=== PATIENT | female | born 1955 | race Caucasian/White ===

== ENCOUNTER → 2018-03-20 | Outpatient (CLI) | payer BC ==
[2018-03-20 10:18] LABS: BLOOD UREA NITROGEN 11 mg/dl (7-18); GLUCOSE 91 mg/dl (70-99); SODIUM 137 mmol/L (136-145)
[2018-03-20 10:19] LABS: ALBUMIN 3.7 gm/dl (3.4-5.0); ALKALINE PHOSPHATASE 94 U/L (45-117); ALT/SGPT 23 U/L (12-78); AST/SGOT 18 U/L (15-37); CALCIUM 8.6 mg/dl (8.5-10.1); CARBON DIOXIDE 27 mmol/L (21-32); POTASSIUM 4.5 mmol/L (3.5-5.1); TOTAL PROTEIN 6.5 gm/dl (6.4-8.2)
== END | disposition home or self-care (01) ==
LOC: C.LAB 09:19
PROVIDERS: ATTEND Internal Medicine
DX: D69.6 Thrombocytopenia, unspecified (principal)

== ENCOUNTER 2022-05-14 19:09 | Inpatient (IN) ==
[2022-05-14] MEDS ORDERED: SODIUM CHLORIDE 0.9% 1000ML 1,000 ML IV ONE (19:40)
--- NOTE | 2022-05-14 20:06 | Emergency Department Note ---
Impression & Plan Acute alteration in mental status, Hypercalcemia, Splenomegaly, Pancytopenia ED Provider Note NAME: LAVONNE BARRERA AGE: 67 SEX: F : 1955 ARRIVES VIA: Walk-In INFORMANT: Patient, ED PROVIDER(S): Naif Alonzo DO CHIEF COMPLAINT: Weakness HPI: The patient is a 67-year-old female who presented to the emergency departm ent for an evaluation of weakness. The patient was told to come the emergency department by her doctor. She had laboratory studies done today. The patient states she has been having trouble concentrating. She is been having trouble ambulating. She has a very large and protruding abdomen and she states they are doing testing to determine what is wrong with her abdomen. She denies having any chest pain. She denies having any difficulty breathing. The patient denies having any fever or chills. She denies having any nausea or vomiting. The patient has not any changes to her medications. ROS: See above HPI for pertinent positives & negatives. A total of 10 systems reviewed and were otherwise negative. PAST MEDICAL HISTORY: See Below PAST SURGICAL HISTORY: See Below FAMILY HISTORY: See Below SOCIAL HISTORY: See Below HOME MEDICATIONS: See Below ALLERGIES: See Below VITALS: See Below PHYSICAL EXAMINATION: GENERAL: The patient is awake but somewhat frail-appearing. EYES: The conjunctivae are clear. The pupils are round and reactive. EARS, NOSE, MOUTH AND THROAT: The nose is without any evidence of any deformity. Mucous membranes are dry. NECK: The neck is nontender and supple. RESPIRATORY: Normal respiratory effort is noted there is no evidence of wheezing rhonchi or rales CARDIOVASCULAR: Tachycardic rate with regular rhythm was noted. There is no definite murmur. GASTROINTESTINAL: The abdomen is protruding. There is no tenderness guarding r igidity. MUSCULOSKELETAL/EXTREMITIES: There is no evidence of gross deformity full range of motion is noted in the hips and shoulders. SKIN: Skin is cool and dry. There is no significant pedal edema. NEUROLOGIC: Patient is awake and answering questions slowly. She is oriented to person place and situation. Strength was symmetric but diminished. MEDICAL DECISION MAKING: The patient is a 67-year-old female who presented to the emergency department after having laboratory studies drawn that showed an elevated calcium. The patient was treated with IV fluids in the emergency department. She was also confused and I am unsure the patient's baseline. For this reason further laboratory and radiographic studies were obtained including CT of the head. No definite abnormality was noted with CT of the head. The patient's abdominal exam did show a very distended abdomen. This appears to be consistent with splenomegaly that was noted on CT abdomen and pelvis tonight. The [facility] hospitalist group was notified about the patient. Triage Nursing notes reviewed. Prior medical records reviewed Vital Signs: reviewed and remarkable for hypertension and tachycardia and tachypnea. Differential diagnosis: Infection, dehydration, metabolic abnormality, hypo/hyperglycemia, electrolyte disturbance, anemia, hypoxia, cardiac sources, intracerebral event, toxicologic, neurologic, as well as other pathologies. ER treatment provided: See below Diagnostics interpreted by me: ECG: EKG was obtained in the emergency department. My interpretation is sinus tachycardia 107 bpm. There were no PVCs noted. There were no acute ST segment abnormalities noted. Nonspecific T wave abnormalities were appreciated. No previous tracing was available. QTc was 379 ms. Cardiac Monitoring: An order was placed for continuous cardiac monitoring. The monitor shows a rate of 107 bpm with sinus tachycardia. Laboratory studies: As stated above and show below. Imaging studies: See below Consultation(s): Dr. Man was notified about the patient. Past Med/Surg History Medical History Headache Sinusitis Stye external Thrombocytopenia Social History Smoking Status: Never smoker Preferred Language: Citizen Of [place] Feels Safe at Home: Yes Results & Data (ED) Vital Signs Vital Signs - 24 hr 05/14/22 19:13 05/14/22 21:30 05/14/22 21:30 Temperature 37.4 C Temperature Source Temporal Artery Scan Pulse Rate 105 H 107 H Pulse Rate from SpO2 Sensor 98 H Respiratory Rate 18 26 H Respiratory Effort / Characteristics Non-Labored Spontaneous Respiratory Depth Normal Blood Pressure 127/70 141/77 H Blood Pressure Mean 89 98 Blood Pressure Position Sitting Pulse Oximetry 96 94 Oxygen Delivery Method Room Air Sepsis Recent Fever Within 48 Hours No Sepsis New/Unexplained Change in Mental Status No Sepsis Action Taken by Nursing No Action Required Home Medications Current Medication List: was personally reviewed by me Laboratory Data Attestation: I reviewed the patient's lab results. Result diagrams: 05/14/22 20:22 05/14/22 20:22 Lab Results 05/14/22 05/14/22 05/14/22 Range/Units 20:22 20:22 21:30 WBC 3.66 L (4.8-10.8) K/ul Hgb 8.9 L (12.0-16.0) g/dl Hct 28.9 L (34.1-44.9) % Plt Count 71 L (130-400) K/uL MPV 12.4 H (9.4-12.3) fL Sodium 136 (136-145) mmol/L Potassium 3.9 (3.5-5.1) mmol/L Chloride 102 (98-107) mmol/L Carbon Dioxide 28 (21-32) mmol/L Anion Gap 6 (3-11) BUN 29 H (6-23) mg/dl Creatinine 0.83 (0.6-1.2) mg/dl Est Cr Clr Drug Dosing Not Reportable Est GFR ( Amer) 84.6 ml/min Est GFR (Non-Af Amer) 73.0 ml/min BUN/Creatinine Ratio 34.9 H (10-20) Glucose 113 H (70-99(Fasting)) mg/dl Calcium 13.9 H* (8.5-10.1) mg/dl Magnesium 1.8 (1.7-2.4) mg/dl Total Bilirubin 3.8 H (0.2-1.0) mg/dl AST 31 (13-39) U/L ALT 7 (7-52) U/L Alkaline Phosphatase 71 (34-104) U/L Total Protein 5.2 L (6.0-8.3) gm/dl Albumin 3.8 (3.4-5.0) gm/dl Globulin 1.4 L (2.5-4.0) gm/dl Albumin/Globulin Ratio 2.7 H (0.9-2) SARS-CoV-2, RNA, NAAT NEGATIVE (NEGATIVE) Administered Medications Discontinued Medications Sodium Chloride (Nss 1000ml) 1,000 mls @ 999 mls/hr IV .Q1H1M ONE Stop: 05/14/22 20:40 Last Admin: 05/14/22 20:56 Dose: 999 mls/hr Documented By: [id number] Imaging Data Radiologist's Impression: Chest X-Ray 05/14/22 19:40 XR chest 1V portable CLINICAL HISTORY: weakness TECHNIQUE: Single frontal radiograph of the chest was obtained. Comparison: None available at the time of this dictation. FINDINGS: No lines and tubes are seen. The cardiomediastinal silhouette is normal. The lungs are clear. No evidence of pleural effusion or pneumothorax. IMPRESSION: No acute chest disease. ACT 112: Negative or not required by law. Electronically signed by: Cornel Dubose M.D. 05/14/2022 8:35 PM Abdomen/Pelvis CT 05/14/22 21:[address] WITHOUT CONTRAST HISTORY: Acutely altered mental status with distended abdomen distended abd TECHNIQUE: Multiaxial CT images of the abdomen and pelvis were performed without contrast. A dose lowering technique was utilized adhering to the principles of ALARA. COMPARISON STUDY: None. FINDINGS: Mild cardiomegaly. Slightly decreased attenuation of the cardiac blood pool may represent anemia. Coronary artery calcifications. Mildly prominent internal mammary chain lymph nodes are partially imaged. Trace right and small left pleural effusions. Mild subsegmental bibasilar atelectasis. No pneumatosis or pneumoperitoneum. The study is limited without the use of contrast. Markedly enlarged spleen displaces the adjacent loops of bowel. The spleen measures up to approximately 30 cm in length. Pathologically enlarged lymph nodes of the abdomen and pelvis with the largest lymph nodes within the periaortic distribution. A left periaortic lymph node on image 248 measures 3.5 x 2.1 cm. Additional pathologically enlarged pelvic sidewall lymph nodes measure up to 1.4 cm. Inguinal chain lymph nodes measure up to approximately 1.2 cm. Additional pathologic periportal and gastrohepatic lymph nodes. The pancreas, and adrenal glands are not well visualized. Partially distended gallbladder. The liver is unremarkable. Unremarkable kidneys. Hydronephrosis. Unremarkable urinary bladder and uterus. Surgical clips of the bilateral adnexal distributions. Atherosclerosis of the aorta. Mild nonspecific wall thickening of the distal esophagus. No bowel obstruction or bowel wall thickening. Trace ascites. Colonic diverticulosis. Hyperdense material within the noninflamed appendix may represent appendicolith versus retained enteric contrast. Mild generalized body wall edema. No acute fracture or destructive bone lesion identified. IMPRESSION: 1. Limited exam as above. No bowel obstruction or bowel wall thickening. 2. Marked splenomegaly with pathologic lymphadenopathy of the abdomen and pelv is. Findings are compatible with a lymphoproliferative disorder. Oncologic workup is needed. 3. Trace right and small left pleural effusions with trace abdominal pelvic ascites. ACT 112: Negative or not required by law. The above report was generated using voice recognition software. It may contain grammatical, syntax or spelling errors. Electronically signed by: Marvin James M.D. 05/14/2022 10:[address] 05/14/22 21:00 CT head/brain wo con CLINICAL HISTORY: 67 years-old Female with ams. Acutely altered mental status TECHNIQUE: Multiple axial CT images of the head were obtained without contrast. A dose lowering technique was utilized adhering to the principles of ALARA. CT DOSE: 859.05 mGy.cm COMPARISON: None. FINDINGS: No acute intracranial hemorrhage, midline shift, intracranial mass, hydro cephalus, territorial ischemia or abnormal extra-axial collection. Mild involutional changes. The calvarium is intact. The paranasal sinuses, mastoid air cells, and middle e ar cavities are clear. IMPRESSION: No acute intracranial abnormality. ACT 112: Negative or not required by law. The above report was generated using voice recognition software. It may contain grammatical, syntax or spelling errors. Electronically signed by: Marvin James M.D. 05/14/2022 9:39 PM Discharge Plan Visit Data Chief Complaint: Referred by Doctor Stated Complaint: REF BY DOC, GOING TO BE ADMITTED ED Provider: Naif Alonzo Discharge Problem: Acute alteration in mental status, Hypercalcemia, Splenomegaly, Pancytopenia Patient Disposition: Being Evaluated by Hospitalist Forms Stand Alone Forms: [facility] Referrals Referrals: PCP,NO [Primary Care Provider] -
--- NOTE | 2022-05-14 20:37 | XRay Report ---
XR chest 1V portable CLINICAL HISTORY: weakness TECHNIQUE: Single frontal radiograph of the chest was obtained. Comparison: None available at the time of this dictation. FINDINGS: No lines and tubes are seen. The cardiomediastinal silhouette is normal. The lungs are clear. No evid ence of pleural effusion or pneumothorax. IMPRESSION: No acute chest disease. ACT 112: Negative or not required by law. Electronically signed by: Cornel Dubose M.D. 05/14/2022 8:35 PM
[2022-05-14 20:45] LABS: Hematocrit (blood only) 28.9 % (34.1-44.9); Hemoglobin 8.9 g/dl (12.0-16.0); Mean Platelet Volume 12.4 fL (9.4-12.3); Platelet Count 71 K/uL (130-400); White Blood Count 3.66 K/ul (4.8-10.8)
[2022-05-14 21:07] LABS: Alanine Aminotransferase 7 U/L (7-52); Albumin Globulin Ratio 2.7 (0.9-2); Albumin Level 3.8 gm/dl (3.4-5.0); Alkaline Phosphatase 71 U/L (34-104); Anion Gap 6 (3-11); Aspartate Aminotransferase 31 U/L (13-39); BUN Creatinine Ratio 34.9 (10-20); Bilirubin,Total 3.8 mg/dl (0.2-1.0); Blood Urea Nitrogen 29 mg/dl (6-23); Calcium 13.9 mg/dl (8.5-10.1); Carbon Dioxide 28 mmol/L (21-32); Chloride 102 mmol/L (98-107); Est GFR (African American) 84.6 ml/min; Globulin 1.4 gm/dl (2.5-4.0); Glucose 113 mg/dl (70-99(Fasting)); Magnesium 1.8 mg/dl (1.7-2.4); Potassium 3.9 mmol/L (3.5-5.1); Sodium 136 mmol/L (136-145); Total Protein 5.2 gm/dl (6.0-8.3)
--- NOTE | 2022-05-14 21:40 | CT Scan Report ---
CT head/brain wo con CLINICAL HISTORY: 67 years-old Female with ams. Acutely altered mental status TECHNIQUE: Multiple axial CT images of the head were obtained without contrast. A dose lowering tech nique was utilized adhering to the principles of ALARA. CT DOSE: 859.05 mGy.cm COMPARISON: None. FINDINGS: No acute intracranial hemorrhage, midline shift, intracranial mass, hydrocephalus, territorial ischem ia or abnormal extra-axial collection. Mild involutional changes. The calvarium is intact. The paranasal sinuses, mastoid air cells, and middle ear cavities are clear . IMPRESSION: No acute intracranial abnormality. ACT 112: Negative or not required by law. The above report was generated using voice recognition software. It may contain grammatical, syntax o r spelling errors. Electronically signed by: Marvin James M.D. 05/14/2022 9:39 PM
--- NOTE | 2022-05-14 22:12 | CT Scan Report ---
ABDOMEN AND PELVIS CT WITHOUT CONTRAST HISTORY: Acutely altered mental status with distended abdomen distended abd TECHNIQUE: Multiaxial CT images of the abdomen and pelvis were performed without contrast. A dose lo wering technique was utilized adhering to the principles of ALARA. COMPARISON STUDY: None. FINDINGS: Mild cardiomegaly. Slightly decreased attenuation of the cardiac blood pool may represent a nemia. Coronary artery calcifications. Mildly prominent internal mammary chain lymph nodes are partia lly imaged. Trace right and small left pleural effusions. Mild subsegmental bibasilar atelectasis. No pneumatosis or pneumoperitoneum. The study is limited without the use of contrast. Markedly enlarged spleen displaces the adjacent loops of bowel. The spleen measures up to approximate ly 30 cm in length. Pathologically enlarged lymph nodes of the abdomen and pelvis with the largest ly mph nodes within the periaortic distribution. A left periaortic lymph node on image 248 measures 3.5 x 2.1 cm. Additional pathologically enlarged pelvic sidewall lymph nodes measure up to 1.4 cm. Inguin al chain lymph nodes measure up to approximately 1.2 cm. Additional pathologic periportal and gastroh epatic lymph nodes. The pancreas, and adrenal glands are not well visualized. Partially distended gal lbladder. The liver is unremarkable. Unremarkable kidneys. Hydronephrosis. Unremarkable urinary bladder and uterus. Surgical clips of the bilateral adnexal distributions. Atherosclerosis of the aorta. Mild nonspecific wall thickening of the distal esophagus. No bowel obstruction or bowel wall thickeni ng. Trace ascites. Colonic diverticulosis. Hyperdense material within the noninflamed appendix may re present appendicolith versus retained enteric contrast. Mild generalized body wall edema. No acute fr acture or destructive bone lesion identified. IMPRESSION: 1. Limited exam as above. No bowel obstruction or bowel wall thickening. 2. Marked splenomegaly with pathologic lymphadenopathy of the abdomen and pelvis. Findings are compat ible with a lymphoproliferative disorder. Oncologic workup is needed. 3. Trace right and small left pleural effusions with trace abdominal pelvic ascites. ACT 112: Negative or not required by law. The above report was generated using voice recognition software. It may contain grammatical, syntax o r spelling errors. Electronically signed by: Marvin James M.D. 05/14/2022 10:10 PM
[2022-05-14 22:17] LABS: ALC (manual) 1.43 K/uL (1.2-3.4); ANC (manual) 2.16 K/uL (1.4-6.5); Basophils # (manual) 0.07 K/uL (0-0.2); Basophils % (manual) 2 %; Eosinophils # (manual) 0.04 K/uL (0-0.50); Eosinophils % (manual) 1 %; Lymphocytes # (manual) 0.99 K/uL (1.2-3.4); Lymphocytes % (manual) 27 %; Mean Corpuscular Hemoglobin 34.8 pg (25.0-34.0); Mean Corpuscular Hgb Conc 30.8 g/dL (32.0-36.0); Mean Corpuscular Volume 112.9 fL (80.0-100.0); Neutrophils # (manual) 2.16 K/uL (1.4-6.5); Neutrophils % (manual) 59 %; Ovalocytes 1+; Polychromasia 2+; RDW Coefficient of Variation 16.7 % (11.5-14.5); RDW Standard Deviation 67.6 fL (36.4-46.3); Red Blood Count 2.56 M/uL (3.93-5.22); Tear Drop Cells 3+
[2022-05-14] MEDS ORDERED: POLYETHYLENE (MIRALAX) 17 GM PACK PO PRN (22:43)
[2022-05-14] MEDS ORDERED: ACETAMINOPHEN 325 MG TAB PO PRN (22:43)
[2022-05-14] MEDS ORDERED: Patient's ALLERGY Info needs ENTERED SCH (23:00)
--- NOTE | 2022-05-14 23:06 | History & Physical Report ---
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 Hypercalcemia -Ca 14.5 on admit -given 1L NSS in [facility], started on 2L NSS -given 60mg Pamidronate -recheck BMP am Splenomegaly -CT A/P: Limited exam as above. No bowel obstruction or bowel wall thickening. Marked splenomegaly with pathologic lymphadenopathy of the abdomen and pelvis. Findings are compatible with a lymphoproliferative disorder. Oncologic workup is needed. Trace right and small left pleural effusions with trace abdominal pelvic ascites. -oncology consulted Moss Syndrome -notable splenomegaly and pathologically enlarged lymph nodes of cervical , abd, pelvic. 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 Patient states she follows with Dr. Frost for oncology, states she has an autoimmune condition that she doesn't understand and is trying to treat with homeopathy. She states her abdomen has become much more swollen over the past 6 months and she has been experiencing abd pain below her belly. Patient describes unintentional weight loss ongoing for the past 2 years. States her legs are swollen, she has difficulty walking due to pain and weakness, denies any falls. States she always feels dizzy and can't focus, her vision has become blurrier over the last 6 months, last week she felt chills. She denies change in hearing, SOB or nausea. Patient states she was previously a patient of Dr. Diggs, her spleen was also enlarged back then but no to this degree, he had advised her to remove it at that time but she refused. Patient has never had a biopsy of her lymph nodes. She has never had prior surgeries. She was recently started on lasix, otherwise uses homeopathic medicine. Family history dad had lung cancer. She is aware she has anemia, may or may not have Grave's disease. She denies smoking, rare alcohol. Per our records patient was a patient of Dr. 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 She has recently connected with Dr. Frost in 12/24/21 and again today, was recommended excisional lymph node biopsy and PET/CT scan, patient had so far declined any forms of treatment. Allergies Allergy/AdvReac Type Severity Reaction Status Date / Time Sulfa (Sulfonamide Allergy Rash Verified 05/14/22 23:36 Antibiotics) Home Medications Medication Instructions Recorded Confirmed Type furosemide 20 mg tablet 20 mg DAILY 05/14/22 05/14/22 History Past Med/Surg History Medical History Headache Sinusitis Stye external Thrombocytopenia Social History Smoking Status: Never smoker Second Hand Exposure: No; Do You Dip or Chew Tobacco: No; Tobacco Cessation Education Requested by Patient: No Hx Alcohol Use: Yes Alcohol type: wine Hx Substance Use: No Preferred Language: Wolof Communication Ability: Effective Classification And Treatment Director Required: No Beliefs That Will Affect Care: None Current Living Situation: Spouse Other Information That Helps Us Care for You: No Feels Safe at Home: Yes Safety Concerns: Feels Safe At This Time Assistive Devices: Glasses Review of Systems Review of Systems: see hpi Physical Exam Constitutional: + thin, cooperative and comfortable Eyes: PERRL, conjunctivae normal, anicteric sclerae ENMT: enleraged anterior and posterior cervical lymph nodes b/l Neck: trachea midline Respiratory: normal respiratory effort, lungs clear to auscultation Cardiovascular: Rate/Rhythm: + tachycardic Vessels: + bounding carotid pulses Extremities: + edema (+2 pitting b/l LE up to knee) Chest (Breasts): Chest: normal inspection of chest Gastrointestinal (Abdomen): Inspection/Auscultation: + abdomen distended Percussion/Palpation: + abdomen tender (b/l lower quadrant), + splenomegaly and + abdomen firm Skin: no rashes, warm and dry Neurologic: CN's II-XI intact bilaterally Results & Data Results & Data ([facility]) Vital Signs (Past 12 Hours) Vital Signs Temp Pulse Resp BP Pulse Ox O2 Del Method 05/14/22 22:30 103 H 38 H 96 05/14/22 22:30 141/81 H 05/14/22 22:20 97 H 26 H 95 05/14/22 22:10 94 H 28 H 94 05/14/22 22:00 103 H 28 H 95 05/14/22 22:00 132/83 05/14/22 21:50 92 H 28 H 95 05/14/22 21:40 102 H 28 H 96 05/14/22 21:30 107 H 26 H 94 05/14/22 21:30 141/77 H 05/14/22 19:13 37.4 C 105 H 18 127/70 96 Room Air Diagnostic Findings Laboratory Results WBC 3.66 K/ul (4.8-10.8) L 05/14/22 20: RBC 2.56 M/uL (3.93-5.22) L 05/14/22 20:22 Hgb 8.9 g/dl (12.0-16.0) L 05/14/22 20: Hct 28.9 % (34.1-44.9) L 05/14/22 20:22 MCV 112.9 fL (80.0-100.0) H 05/14/22 20:22 MCH 34.8 pg (25.0-34.0) H 05/14/22 20: MCHC 30.8 g/dL (32.0-36.0) L 05/14/22 20:22 RDW Std Deviation 67.6 fL (36.4-46.3) H 05/14/22 20:22 RDW Coeff of Desire 16.7 % (11.5-14.5) H 05/14/22 20:22 Plt Count 71 K/uL (130-400) L 05/14/22 20:22 MPV 12.4 fL (9.4-12.3) H 05/14/22 20:22 Neutrophils % (Manual) 59 % 05/14/22 20:22 Lymphocytes % (Manual) 27 % 05/14/22 20:22 Reactive Lymphs % (Man) 12 % 05/14/22 20:22 Eosinophils % (Manual) 1 % 05/14/22 20:22 Basophils % (Manual) 2 % 05/14/22 20:22 Neutrophils # (Manual) 2.16 K/uL (1.4-6.5) 05/14/22 20:22 Total Absolute Neuts 2.16 K/uL (1.4-6.5) 05/14/22 20:22 Lymphocytes # (Manual) 0.99 K/uL (1.2-3.4) L 05/14/22 20:22 Reactive Lymphs # 0.44 K/uL 05/14/22 20:22 Total Abs Lymphocytes 1.43 K/uL (1.2-3.4) 05/14/22 20:22 Eosinophils # (Manual) 0.04 K/uL (0-0.50) 05/14/22 20:22 Basophils # (Manual) 0.07 K/uL (0-0.2) 05/14/22 20:22 Polychromasia 2+ 05/14/22 20:22 Tear Drop Cells 3+ 05/14/22 20:22 Ovalocytes 1+ 05/14/22 20:22 Sodium 136 mmol/L (136-145) 05/14/22 20:22 Potassium 3.9 mmol/L (3.5-5.1) 05/14/22 20:22 Chloride 102 mmol/L (98-107) 05/14/22 20:22 Carbon Dioxide 28 mmol/L (21-32) 05/14/22 20:22 Anion Gap 6 (3-11) 05/14/22 20:22 BUN 29 mg/dl (6-23) H 05/14/22 20:22 Creatinine 0.83 mg/dl (0.6-1.2) 05/14/22 20:22 Est Cr Clr Drug Dosing Not Reportable 05/14/22 20:22 Est GFR ( Amer) 84.6 ml/min 05/14/22 20:22 Est GFR (Non-Af Amer) 73.0 ml/min 05/14/22 20:22 BUN/Creatinine Ratio 34.9 (10-20) H 05/14/22 20:22 Glucose 113 mg/dl (70-99(Fasting)) H 05/14/22 20:22 Calcium 13.9 mg/dl (8.5-10.1) H* 05/14/22 20:22 Magnesium 1.8 mg/dl (1.7-2.4) 05/14/22 20:22 Total Bilirubin 3.8 mg/dl (0.2-1.0) H 05/14/22 20:22 AST 31 U/L (13-39) 05/14/22 20:22 ALT 7 U/L (7-52) 05/14/22 20:22 Alkaline Phosphatase 71 U/L (34-104) 05/14/22 20:22 Total Protein 5.2 gm/dl (6.0-8.3) L 05/14/22 20:22 Albumin 3.8 gm/dl (3.4-5.0) 05/14/22 20:22 Globulin 1.4 gm/dl (2.5-4.0) L 05/14/22 20:22 Albumin/Globulin Ratio 2.7 (0.9-2) H 05/14/22 20:22 SARS-CoV-2, RNA, NAAT NEGATIVE (NEGATIVE) 05/14/22 21:30 Impressions Chest X-Ray 05/14/22 19:40 XR chest 1V portable CLINICAL HISTORY: weakness TECHNIQUE: Single frontal radiograph of the chest was obtained. Comparison: None available at the time of this dictation. FINDINGS: No lines and tubes are seen. The cardiomediastinal silhouette is normal. The lungs are clear. No evidence of pleural effusion or pneumothorax. IMPRESSION: No acute chest disease. ACT 112: Negative or not required by law. Electronically signed by: Cornel Dubose M.D. 05/14/2022 8:35 PM Abdomen/Pelvis CT 05/14/22 21:[address] WITHOUT CONTRAST HISTORY: Acutely altered mental status with distended abdomen distended abd TECHNIQUE: Multiaxial CT images of the abdomen and pelvis were performed without contrast. A dose lowering technique was utilized adhering to the principles of ALARA. COMPARISON STUDY: None. FINDINGS: Mild cardiomegaly. Slightly decreased attenuation of the cardiac blood pool may represent anemia. Coronary artery calcifications. Mildly prominent internal mammary chain lymph nodes are partially imaged. Trace right and small left pleural effusions. Mild subsegmental bibasilar atelectasis. No pneumatosis or pneumoperitoneum. The study is limited without the use of contrast. Markedly enlarged spleen displaces the adjacent loops of bowel. The spleen measures up to approximately 30 cm in length. Pathologically enlarged lymph nodes of the abdomen and pelvis with the largest lymph nodes within the periaortic distribution. A left periaortic lymph node on image 248 measures 3.5 x 2.1 cm. Additional pathologically enlarged pelvic sidewall lymph nodes measure up to 1.4 cm. Inguinal chain lymph nodes measure up to approximately 1.2 cm. Additional pathologic periportal and gastrohepatic lymph nodes. The pancreas, and adrenal glands are not well visualized. Partially distended gallbladder. The liver is unremarkable. Unremarkable kidneys. Hydronephrosis. Unremarkable urinary bladder and uterus. Surgical clips of the bilateral adnexal distributions. Atherosclerosis of the aorta. Mild nonspecific wall thickening of the distal esophagus. No bowel obstruction or bowel wall thickening. Trace ascites. Colonic diverticulosis. Hyperdense material within the noninflamed appendix may represent appendicolith versus retained enteric contrast. Mild generalized body wall edema. No acute fracture or destructive bone lesion identified. IMPRESSION: 1. Limited exam as above. No bowel obstruction or bowel wall thickening. 2. Marked splenomegaly with pathologic lymphadenopathy of the abdomen and pelvis. Findings are compatible with a lymphoproliferative disorder. Oncologic workup is needed. 3. Trace right and small left pleural effusions with trace abdominal pelvic ascites. ACT 112: Negative or not required by law. The above report was generated using voice recognition software. It may contain grammatical, syntax or spelling errors. Electronically signed by: Marvin James M.D. 05/14/2022 10:[address] 05/14/22 21:00 CT head/brain wo con CLINICAL HISTORY: 67 years-old Female with ams. Acutely altered mental status TECHNIQUE: Multiple axial CT images of the head were obtained without contrast. A dose lowering technique was utilized adhering to the principles of ALARA. CT DOSE: 859.05 mGy.cm COMPARISON: None. FINDINGS: No acute intracranial hemorrhage, midline shift, intracranial mass, hydrocephalus, territorial ischemia or abnormal extra-axial collection. Mild involutional changes. The calvarium is intact. The paranasal sinuses, mastoid air cells, and middle ear cavities are clear. IMPRESSION: No acute intracranial abnormality. ACT 112: Negative or not required by law. The above report was generated using voice recognition software. It may contain grammatical, syntax or spelling errors. Electronically signed by: Marvin James M.D. 05/14/2022 9:39 PM Medications Administered Current Inpatient Medications Acetaminophen (Acetaminophen 325 Mg Tab) 650 mg PO Q4H PRN PRN Reason: pain/fever Stop: 06/13/22 22:42 Heparin Sodium (Porcine) (Heparin Sod 5,000 Unit/0.5 Ml Vial) 5,000 units SQ Q12 JESSICA Stop: 06/14/22 08:59 Pamidronate Disodium 60 mg/ (Sodium Chloride) 1,020 mls @ 0 mls/hr IV .Q0M ONE Stop: 05/14/22 22:52 Miscellaneous Information (Patient's Allergy Info Needs Entered) 1 each N/A Q30M JESSICA Stop: 05/15/22 03:00 Polyethylene Glycol (Polyethylene (Miralax) 17 Gm Pack) 17 gm PO DAILY PRN PRN Reason: Constipation Stop: 06/13/22 22:42 Supervising Physician Co-Signing Physician Notes Attending addendum: I have physically seen this patient, have supervised the medical residents activities, and agree with the H&P unless as otherwise noted. Assessment and Plan: Hypercalcemia- 14.5 as an outpatient, 13.9 on admission labs Given 1 L normal saline from the ED Placed on additional 2 L normal saline now Pamidronate 60 mg IV x1 Follow serial laboratories Likely secondary to intra-abdominal process Splenomegaly/marked lymphadenopathy/Moss syndrome- Likely lymphoproliferative disorder Consult hematology oncology Remaining orders and notations as noted Resident Activity Tracking Resident Involvement: Resident Care Provided Care Provided: Adult Hospital Medicine
[2022-05-15] MEDS ORDERED: PAMIDRONATE DISODIUM 60 MG in SODIUM CHLORIDE 0.9% 1000ML 1,000 ML IV ONE (00:15)
[2022-05-15 00:58] LABS: Bilirubin Direct 0.9 mg/dl (0-0.2); Phosphorus 2.5 mg/dl (2.5-4.9)
[2022-05-15 01:33] LABS: Base Excess ABG 2.9 mEq/L (-9-1.8); HCO3 ABG 26 mmol/L (19-24); Oxygen Saturation ABG 97.1 % (90-95); PCO2 ABG 34 mmHg (35-46); PO2 ABG 74 mmHg (80-95); pH ABG 7.49 (7.35-7.45)
[2022-05-15 01:59] LABS: Albumin Globulin Ratio 3.1 (0.9-2); Albumin Level 3.1 gm/dl (3.4-5.0); BUN Creatinine Ratio 29.4 (10-20); Bilirubin,Total 2.7 mg/dl (0.2-1.0); Calcium 12.6 mg/dl (8.5-10.1); Creatinine Clr Calc Pharmacy 56.6 ml/min; Est GFR (African American) 82.2 ml/min; Est GFR (Non-African American) 70.9 ml/min; Potassium 3.8 mmol/L (3.5-5.1); Total Protein 4.1 gm/dl (6.0-8.3)
[2022-05-15 02:02] LABS: Hematocrit (blood only) 20.9 % (34.1-44.9); Hemoglobin 6.4 g/dl (12.0-16.0); Mean Corpuscular Hemoglobin 34.8 pg (25.0-34.0); Mean Corpuscular Hgb Conc 30.6 g/dL (32.0-36.0); Mean Corpuscular Volume 113.6 fL (80.0-100.0); Mean Platelet Volume 11.7 fL (9.4-12.3); Nucleated RBC # (auto) 0.03 K/uL (0-0); Platelet Count 57 K/uL (130-400); RDW Coefficient of Variation 16.3 % (11.5-14.5); RDW Standard Deviation 66.8 fL (36.4-46.3); Red Blood Count 1.84 M/uL (3.93-5.22); White Blood Count 3.02 K/ul (4.8-10.8)
[2022-05-15] MEDS: SODIUM CHLORIDE 0.9% 1000ML 1,000 ML IV SCH ×2 (02:10→09:06)
[2022-05-15 02:25] LABS: Allen Test Pos (Pos)
[2022-05-15] MEDS ORDERED: SODIUM CHLORIDE 0.9% 250 ML IV PRN (02:27)
--- NOTE | 2022-05-15 03:15 | Communication Note ---
Date of Service: May 15, 2022 changed level of care from med/surg to med tele for sinus tach 100s and tachypnea to 28-31 added labs. discontinued heparin sq order ordered type and cross 2u irradiated prbc (transfuse 1u). informed by lab that will need to acquire from [facility] because LANDON pos during outpatient testing. There will be delay, likely will not obtain until end of day today. will continue to follow cbc. some component of the anemia is dilutional as Hb went from 8.9->6.4 within hours. next cbc at 9AM. H/H ordered for 3PM and 9PM.
[2022-05-15] MEDS ORDERED: SODIUM CHLORIDE 0.9% 1000ML 1,000 ML IV SCH (03:55)
[2022-05-15] MEDS ORDERED: MAGNESIUM SULFATE / D5W 1 GM/100 ML BAG IV ONE (04:41)
--- NOTE | 2022-05-15 05:42 | Ultrasound Report ---
ULTRASOUND BILATERAL LOWER EXTREMITY VENOUS CLINICAL HISTORY: Lower extremity edema. COMPARISON STUDY: No priors. TECHNIQUE: Real-time, grayscale, and color Doppler sonography of the deep veins of the right and left lower extremity was performed from the inguinal crease to the calf. Compression and augmentation wer e utilized. FINDINGS: There is no sonographic evidence of deep venous thrombosis identified in the right or left lower extremity. The common femoral, superficial femoral, and popliteal veins are patent and normally compressible bilaterally. The greater saphenous vein and the profunda femoris vein at the junction w ith the common femoral vein are clear in both legs. The visualized calf veins are patent bilaterally. Prominent inguinal lymph nodes are nonspecific and likely reactive. IMPRESSION: There is no sonographic evidence of deep venous thrombosis identified in the right or lef t lower extremity. ACT 112: Negative or not required by law. Electronically signed by: Bert Rios M.D. 05/15/2022 5:40 AM
[2022-05-15 07:08] LABS: Appearance Urine Clear (Clear); Bilirubin Urine Negative (Negative); Blood Urine Negative (Negative); Color Urine Dark Yellow; Glucose Urine UA Negative (Negative); Ketones Urine Negative (Negative); Leukocyte Esterase Urine Negative (Negative); Nitrite Urine Negative (Negative); Protein Urine Negative (Negative); Specific Gravity Urine 1.014 (1.000-1.030); Urobilinogen Urine Negative (Negative); pH Urine 5.5 (4.5-7.5)
--- NOTE | 2022-05-15 07:18 | Electrocardiogram Report ---
Test Reason : Blood Pressure : / mmHG Vent. Rate : 107 BPM Atrial Rate : 107 BPM P-R Int : 162 ms QRS Dur : 084 ms QT Int : 284 ms P-R-T Axes : 061 007 -02 degrees QTc Int : 379 ms Sinus tachycardia with Premature supraventricular complexes Nonspecific T wave abnormality Abnormal ECG No previous ECGs available Confirmed by Jermain Chong ([id number]) on 05/15/2022 7:17:34 AM Referred By: REFERRED SELF Confirmed By:Ulises Chong
[2022-05-15 08:53] LABS: Other Cell Type % 12 %
[2022-05-15 08:54] LABS: Other Cells # (manual) 0.44 K/uL (0-0)
[2022-05-15] MEDS ORDERED: methylPREDNISolone 125 MG in SYRINGE 0 ML IV ONE (09:00)
[2022-05-15] MEDS ORDERED: HEPARIN SOD 5,000 UNIT/0.5 ML VIAL SQ SCH (09:00)
[2022-05-15] MEDS: predniSONE 50 MG TAB PO SCH (09:45)
[2022-05-15 09:49] LABS: Albumin Globulin Ratio 2.8 (0.9-2); Albumin Level 3.1 gm/dl (3.4-5.0); BUN Creatinine Ratio 32.1 (10-20); Bilirubin,Total 2.4 mg/dl (0.2-1.0); Creatinine Clr Calc Pharmacy 57.7 ml/min; Est GFR (African American) 91.2 ml/min; Est GFR (Non-African American) 78.7 ml/min; Globulin 1.1 gm/dl (2.5-4.0); Potassium 3.6 mmol/L (3.5-5.1); Total Protein 4.2 gm/dl (6.0-8.3)
[2022-05-15 09:57] LABS: ALC (manual) 1.82 K/uL (1.2-3.4); Basophilic Stippling 1+; Basophils # (manual) 0.07 K/uL (0-0.2); Basophils % (manual) 2 %; Lymphocytes # (manual) 1.82 K/uL (1.2-3.4); Lymphocytes % (manual) 50 %; Mean Corpuscular Hemoglobin 34.9 pg (25.0-34.0); Mean Corpuscular Hgb Conc 30.5 g/dL (32.0-36.0); Mean Corpuscular Volume 114.6 fL (80.0-100.0); Mean Platelet Volume 11.9 fL (9.4-12.3); Monocytes # (manual) 0.07 K/uL (0.24-0.82); Monocytes % (manual) 2 %; Neutrophils % (manual) 33 %; Nucleated RBC # (auto) 0.02 K/uL (0-0); Nucleated RBC % (auto) 0.5 %; Other Cell Type % 14 %; Other Cells # (manual) 0.51 K/uL (0-0); Platelet Count 58 K/uL (130-400); Platelet Estimate Decreased (Normal); Polychromasia 1+; RDW Coefficient of Variation 16.7 % (11.5-14.5); RDW Standard Deviation 69.8 fL (36.4-46.3); Red Blood Count 1.92 M/uL (3.93-5.22); White Blood Count 3.64 K/ul (4.8-10.8)
[2022-05-15 10:00] LABS: Hemoglobin 6.7 g/dl (12.0-16.0)
--- NOTE | 2022-05-15 14:26 | Hospitalist Progress Note ---
Date of Service May 15, 2022 Assessment & Plan (1) Moss syndrome: Plan: Patient diagnosed with Moss syndrome, used to follow up with Oncologist Dr Caterina Diggs treated her with IVIG, corticosteroids, Rituximab, Promacta, he offered her splenectomy in 2016, but she refused and was subsequently lost to follow up. Apparently, she started seeing Dr Frost 01/03 and excisional lymph node biopsy and PET/CT was recommended, but she declined and opted for homeopathic medicine. She presents to the hospital on account of weakness and hypercalcemia on the insistence of her Oncologist She was found to be pancytopenic. 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 Physical Exam Physical Exam: The patient is awake, alert and oriented 3, well developed and well nourished, normocephalic and atraumatic, lying in bed and in no acute distress. HEENT--PERRL, EOMI,pale mucous membranes and oropharynx mildly dry Neck--supple. No JVD. No bruits. Thyroid normal, trachea midline, no adenopathy. Heart--normal S1 and S2. No murmurs, rubs or gallops. Lungs--clear bilaterally, no respiratory distress, no accessory muscle use. Abdomen--distended, massive splenomegaly Extremities--trace leg edema Dermatologic--normal skin turgor, normal color, no abnormal lymph nodes, no rash. Neurologic--cranial nerves II through XII grossly intact. Rheumatologic--normal range of motion. Psychiatric--normal affect. Results & Data Results & Data ([facility]) Vital Signs (Past 12 Hours) Vital Signs Temp Pulse Pulse Resp BP Pulse Ox O2 Del Method 05/15/22 12:24 98.2 F 78 16 103/55 L 93 Room Air 05/15/22 07:49 97.5 F L 81 18 115/51 L 93 Room Air 05/15/22 07:35 86 05/15/22 05:10 88 05/15/22 04:39 Room Air 05/15/22 04:39 98.2 F 88 20 128/88 93 Room Air 05/15/22 03:11 98.2 F 88 18 128/68 93 Room Air PG Care Time/CCT Total # of Minutes Spent Total Time Spent with Patient: Total time spent is greater than 50% in coordination of care (as documented) at patient's floor/unit and/or counseling patient: Coding Level of Care Code 79345 Subseq Hosp Care Lvl 2 Diagnoses Moss syndrome D69.41 Hypercalcemia E83.52 Splenomegaly R16.1 Pancytopenia D61.818 Time Spent (min) 35
[2022-05-15 16:02] LABS: Hematocrit (blood only) 28.2 % (34.1-44.9); Hemoglobin 8.6 g/dl (12.0-16.0)
--- NOTE | 2022-05-15 19:19 | Billing Data ---
Date of Service May 15, 2022 Coding Level of Care Code 67919 Initial Inpt Care Lvl 3
[2022-05-15 22:02] LABS: Hematocrit (blood only) 28.6 % (34.1-44.9); Hemoglobin 8.9 g/dl (12.0-16.0)
[2022-05-16 07:11] LABS: Hematocrit (blood only) 24.3 % (34.1-44.9); Hemoglobin 7.3 g/dl (12.0-16.0); Mean Corpuscular Hemoglobin 34.6 pg (25.0-34.0); Mean Corpuscular Volume 115.2 fL (80.0-100.0); Mean Platelet Volume 11.8 fL (9.4-12.3); Nucleated RBC # (auto) 0.02 K/uL (0-0); Nucleated RBC % (auto) 0.5 %; Platelet Count 58 K/uL (130-400); Platelet Estimate Decreased (Normal); RDW Coefficient of Variation 16.4 % (11.5-14.5); RDW Standard Deviation 68.8 fL (36.4-46.3); Red Blood Count 2.11 M/uL (3.93-5.22); White Blood Count 4.37 K/ul (4.8-10.8)
[2022-05-16 07:14] LABS: BUN Creatinine Ratio 35.2 (10-20); Calcium 9.6 mg/dl (8.5-10.1); Creatinine Clr Calc Pharmacy 52.8 ml/min; Est GFR (African American) 78.8 ml/min; Potassium 3.2 mmol/L (3.5-5.1)
[2022-05-16] MEDS: predniSONE 50 MG TAB PO SCH (07:29)
--- NOTE | 2022-05-16 14:27 | Hospitalist Progress Note ---
Date of Service May 16, 2022 Assessment & Plan (1) Moss syndrome: Plan: Patient diagnosed with Moss syndrome, used to follow up with Oncologist Dr Caterina Diggs treated her with IVIG, corticosteroids, Rituximab, Promacta, he offered her splenectomy in 2016, but she refused and was subsequently lost to follow up. Apparently, she started seeing Dr Frost 01/03 and excisional lymph node biopsy and PET/CT was recommended, but she declined and opted for homeopathic medicine. She presents to the hospital on account of weakness and hypercalcemia on the insistence of her Oncologist She was found to be pancytopenic. 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 Physical Exam Physical Exam: The patient is awake, alert and oriented 3, well developed and well nourished, normocephalic and atraumatic, lying in bed and in no acute distress. HEENT--PERRL, EOMI,pale mucous membranes and oropharynx mildly dry Neck--supple. No JVD. No bruits. Thyroid normal, trachea midline, no adenopathy. Heart--normal S1 and S2. No murmurs, rubs or gallops. Lungs--clear bilaterally, no respiratory distress, no accessory muscle use. Abdomen--distended, massive splenomegaly Extremities--trace leg edema Dermatologic--normal skin turgor, normal color, no abnormal lymph nodes, no rash. Neurologic--cranial nerves II through XII grossly intact. Rheumatologic--normal range of motion. Psychiatric--normal affect. Results & Data Results & Data ([facility]) Vital Signs (Past 12 Hours) Vital Signs Temp Pulse Pulse Resp BP BP Pulse Ox 05/16/22 13:15 97.7 F 74 16 139/64 96 05/16/22 12:15 97.5 F L 77 16 131/70 92 05/16/22 11:45 97.5 F L 65 16 127/65 93 05/16/22 11:30 97.5 F L 80 16 123/65 93 05/16/22 11:09 97.7 F 80 16 141/66 H 93 05/16/22 07:32 97.5 F L 64 16 111/61 97 05/16/22 07:23 56 L 05/16/22 04:42 72 05/16/22 03:06 97.3 F L 58 L 16 101/50 L 96 O2 Del Method O2 Flow Rate 05/16/22 13:15 05/16/22 12:15 05/16/22 11:45 05/16/22 11:30 0 05/16/22 11:09 0 05/16/22 07:32 Room Air 05/16/22 07:23 05/16/22 04:42 05/16/22 03:06 Room Air PG Care Time/CCT Total # of Minutes Spent Total Time Spent with Patient: Total time spent is greater than 50% in coordination of care (as documented) at patient's floor/unit and/or counseling patient: Coding Level of Care Code 83009 Subseq Hosp Care Lvl 2 Diagnoses Moss syndrome D69.41 Hypercalcemia E83.52 Splenomegaly R16.1 Pancytopenia D61.818 Time Spent (min) 35
[2022-05-16 17:08] LABS: Hemoglobin 9.4 g/dl (12.0-16.0)
--- NOTE | 2022-05-17 06:58 | Hospitalist Progress Note ---
Date of Service May 17, 2022 Assessment & Plan (1) Hypercalcemia: Plan: Presented at the request of Dr. Fung to the emergency room due to a calcium of 13.4. Received IV fluids and pamidronate on admission. Calcium today of 9.0 following these interventions. Daily BMP. Hypercalcemia likely due to underlying hematologic malignancy. Evaluation of such as described below. 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 Patient discontinued treatments in 2019 in favor of a holistic approach. Patient was reevaluated by Dr. Frost in December 2021 and at that time was noted to have massive splenomegaly and extensive cervical lymphadenopathy. Last week patient decided to pursue evaluation of her ongoing medical issues, including bone marrow biopsy, PET scan, excisional biopsy. Given significant concern for high-grade lymphoma, general surgery was consulted this admission for excisional lymph node biopsy while patient is in-house. Dr. Sanchez with general surgery to perform cervical lymph node biopsy tomorrow morning. N.p.o. at midnight for this. (3) Autoimmune hemolytic anemia: Plan: See above (4) Pancytopenia: Plan: Chronic. History of macrocytic anemia, follows with Dr. Frost as described above. Presented with WBC 4.34, hemoglobin 8.9, platelets 70. Hemoglobin decreased to 6.4 on 05/15 without evidence of bleeding; is now s/p 1 unit of packed red blood cells. Hemoglobin stable at 8.4. No evidence of bleeding from any source. Daily CBC. (5) Splenomegaly: Plan: See above. (6) Lymphadenopathy: Plan: See above. Plan CODE STATUS: Full code FEN: N.p.o. at midnight for lymph node biopsy DVT prophylaxis: Ambulate on demand for now with resumption of chemoprophylaxis following biopsy Dispo: Med/Surg with Tele Admission and Anticipated Discharge Date Admission Date: May 14, 2022 Subjective Patient without acute events overnight. Today patient reports that she would like to undergo evaluation of suspected hematologic malignancy and speak with general surgery about excisional biopsy. She denies chest pain, shortness of breath, abdominal pain. She does report some early satiety due to her massive splenomegaly. She denies blood in her stool or urine. Review of Systems Constitutional: no fever and no chills Respiratory: no cough and no dyspnea Cardiovascular: no chest pain and no palpitations Gastrointestinal: no abdominal pain, no nausea and no vomiting Physical Exam Constitutional: WD/WN, vitals as above Respiratory: normal respiratory effort, lungs clear to auscultation Cardiovascular: RRR, no murmur, no edema Gastrointestinal (Abdomen): Abdomen firm and distended, this is chronic for several months per patient. No fluid wave. Splenomegaly noted. Bowel sounds normal. Musculoskeletal: Patient seen walking to and from bathroom without weakness or issues. Strength 5/5 in bilateral upper and lower extremities. Skin: no rashes, warm and dry Psychiatric: A+Ox3, euthymic affect Results & Data Results & Data ([facility]) Vital Signs (Past 12 Hours) Vital Signs Temp Pulse Pulse Resp BP Pulse Ox O2 Del Method 05/17/22 03:14 36.7 C 68 16 122/71 94 Room Air 05/17/22 00:22 62 05/16/22 23:17 36.7 C 66 18 127/42 L 93 Room Air 05/16/22 19:36 36.4 C L 71 18 129/70 96 Room Air PG Care Time/CCT Total # of Minutes Spent Total Time Spent with Patient: Total time spent is greater than 50% in coordination of care (as documented) at patient's floor/unit and/or counseling patient: Coding Level of Care Code 92718 Subseq Hosp Care Lvl 3 Diagnoses Hypercalcemia E83.52 Moss syndrome D69.41 Autoimmune hemolytic anemia D59.10 Pancytopenia D61.818 Splenomegaly R16.1 Lymphadenopathy R59.1
[2022-05-17 07:39] LABS: Albumin Globulin Ratio 3.1 (0.9-2); Albumin Level 3.1 gm/dl (3.4-5.0); BUN Creatinine Ratio 40.5 (10-20); Bilirubin Direct 0.6 mg/dl (0-0.2); Bilirubin,Total 2.2 mg/dl (0.2-1.0); Creatinine Clr Calc Pharmacy 63.1 ml/min; Est GFR (African American) 97.2 ml/min; Est GFR (Non-African American) 83.8 ml/min; Potassium 3.4 mmol/L (3.5-5.1); Total Protein 4.1 gm/dl (6.0-8.3)
[2022-05-17 08:00] LABS: Hematocrit (blood only) 27.3 % (34.1-44.9); Hemoglobin 8.4 g/dl (12.0-16.0); Platelet Count 61 K/uL (130-400); White Blood Count 4.98 K/ul (4.8-10.8)
[2022-05-17] MEDS: predniSONE 50 MG TAB PO SCH (08:01)
[2022-05-17 08:46] LABS: ALC (manual) 2.24 K/uL (1.2-3.4); ANC (manual) 1.79 K/uL (1.4-6.5); Basophils % (manual) 2 %; Eosinophils # (manual) 0.05 K/uL (0-0.50); Eosinophils % (manual) 1 %; Lymphocytes # (manual) 2.24 K/uL (1.2-3.4); Lymphocytes % (manual) 45 %; Mean Corpuscular Hemoglobin 34.4 pg (25.0-34.0); Mean Corpuscular Hgb Conc 30.8 g/dL (32.0-36.0); Mean Corpuscular Volume 111.9 fL (80.0-100.0); Monocytes % (manual) 2 %; Myelocytes # (manual) 0.05 K/uL (0-0); Myelocytes % (manual) 1 %; Neutrophils # (manual) 1.79 K/uL (1.4-6.5); Neutrophils % (manual) 36 %; Nucleated RBC # (auto) 0.02 K/uL (0-0); Nucleated RBC % (auto) 0.4 %; Other Cell Type % 14 %; Ovalocytes 1+; Polychromasia 2+; RDW Coefficient of Variation 17.5 % (11.5-14.5); RDW Standard Deviation 71.6 fL (36.4-46.3); Red Blood Count 2.44 M/uL (3.93-5.22); Tear Drop Cells 3+
--- NOTE | 2022-05-17 10:12 | Surgery Consultation ---
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 She has not had much in way of recent workup of her splenomegaly, lymphadenopathy and lab abnormalities as she opted to try a homeopathic approach to her care. She has recently been connected with Dr. Frost this year and recent blood work noted hypercalcemia and she was referred to be evaluated/treated. A CT a/p in the ER revealed marked splenomegaly with pathologic lymphadenopathy of the abdomen and pelvis. Findings are compatible with a lymphoproliferative disorder. Our services have been consulted to consider a lymph node biopsy for diagnostic purposes. She has palpable LN's along the cervical, occipital, and clavicular regions. She is amenable to biopsy at this time. We can add her on to the OR schedule tomorrow for cervical LN biopsy. NPO at midnight. Dr. Sanchez has obtained consent. (2) Moss syndrome: Supervising Physician Co-Signing Physician Notes I personally saw and evaluate the patient with Mayda Sweeney PA-C and agree with the assessment and plan. 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 Patient was previously a patient of Dr. Nielsen a few years ago, but since was lost to follow up as she chose to be treated by a homeopathic doctor in [place]. She reports she has recently connected with Dr. Frost this year. On scheduled lab work she was found to be hypercalcemic and referred to the ER. She underwent a CT a/p that revealed marked splenomegaly with pathologic lymphadenopathy of the abdomen and pelvis. Findings are compatible with a lymphoproliferative disorder. Our services have been consulted to consider a lymph node biopsy for diagnostic purposes. Apparently this was recommended in the past and recently by Dr. Frost, but pt refused. She said she is open to more treatments now seeing that the homeopathic medicine did not help her. She reports ongoing weakness, fatigue, and difficulty walking. She has abdominal distention and pain along her spleen. She denies any fevers/chills, nausea/vomiting, difficulty with eating. Reports a ~5lb weight loss. She says she feels better since her blood transfusion earlier this admission. Allergies Allergy/AdvReac Type Severity Reaction Status Date / Time Sulfa (Sulfonamide Allergy Rash Verified 05/14/22 23:36 Antibiotics) Home Medications Medication Instructions Recorded Confirmed Type furosemide 20 mg tablet 20 mg DAILY 05/14/22 05/14/22 History Patient History Medical History Headache Sinusitis Stye external Thrombocytopenia Social History Smoking Status: Never smoker Second Hand Exposure: No; Hx Alcohol Use: Yes Alcohol type: wine Hx Substance Use: No Preferred Language: Rw[place]an Communication Ability: Effective Agent Required: No Beliefs That Will Affect Care: None Current Living Situation: Spouse Feels Safe at Home: Yes Assistive Devices: Glasses Review of Systems Constitutional: + weakness and + weight loss; no fever, no chills and no anorexia Respiratory: no dyspnea Cardiovascular: no chest pain Gastrointestinal: + bloating; no nausea, no vomiting and no change in bowel habits Physical Exam Physical Exam: awake/alert, no distress ENMT: Palpable LN's posteriorly in hair line, + R cervical LN, and R infraclavicular LN Respiratory: normal respiratory effort Gastrointestinal (Abdomen): Inspection/Auscultation: + abdomen distended Percussion/Palpation: + abdomen tender (mild generalized abdominal discomfort) and + splenomegaly Results & Data ([facility]) Vital Signs (Past 12 Hours) Vital Signs Temp Pulse Pulse Resp BP BP Pulse Ox 05/17/22 08:01 36.6 C 65 16 125/70 95 05/17/22 07:48 96 H 05/17/22 03:14 36.7 C 68 16 122/71 94 05/17/22 00:22 62 05/16/22 23:17 36.7 C 66 18 127/42 L 93 O2 Del Method 05/17/22 08:01 Room Air 05/17/22 07:48 05/17/22 03:14 Room Air 05/17/22 00:22 05/16/22 23:17 Room Air Diagnostic Findings ABDOMEN AND PELVIS CT WITHOUT CONTRAST HISTORY: Acutely altered mental status with distended abdomen distended abd TECHNIQUE: Multiaxial CT images of the abdomen and pelvis were performed without contrast. A dose lowering technique was utilized adhering to the principles of ALARA. COMPARISON STUDY: None. FINDINGS: Mild cardiomegaly. Slightly decreased attenuation of the cardiac blood pool may represent anemia. Coronary artery calcifications. Mildly prominent internal mammary chain lymph nodes are partially imaged. Trace right and small left pleural effusions. Mild subsegmental bibasilar atelectasis. No pneumatosis or pneumoperitoneum. The study is limited without the use of contrast. Markedly enlarged spleen displaces the adjacent loops of bowel. The spleen measures up to approximately 30 cm in length. Pathologically enlarged lymph nodes of the abdomen and pelvis with the largest lymph nodes within the periaortic distribution. A left periaortic lymph node on image 248 measures 3.5 x 2.1 cm. Additional pathologically enlarged pelvic sidewall lymph nodes measure up to 1.4 cm. Inguinal chain lymph nodes measure up to approximately 1.2 cm. Additional pathologic periportal and gastrohepatic lymph nodes. The pancreas, and adrenal glands are not well visualized. Partially distended gallbladder. The liver is unremarkable. Unremarkable kidneys. Hydronephrosis. Unremarkable urinary bladder and uterus. Surgical clips of the bilateral adnexal distributions. Atherosclerosis of the aorta. Mild nonspecific wall thickening of the distal esophagus. No bowel obstruction or bowel wall thickening. Trace ascites. Colonic diverticulosis. Hyperdense material within the noninflamed appendix may represent appendicolith versus retained enteric contrast. Mild generalized body wall edema. No acute fracture or destructive bone lesion identified. IMPRESSION: 1. Limited exam as above. No bowel obstruction or bowel wall thickening. 2. Marked splenomegaly with pathologic lymphadenopathy of the abdomen and pelvis. Findings are compatible with a lymphoproliferative disorder. Oncologic workup is needed. 3. Trace right and small left pleural effusions with trace abdominal pelvic ascites. ACT 112: Negative or not required by law. The above report was generated using voice recognition software. It may contain grammatical, syntax or spelling errors. Electronically signed by: Marvin James M.D. 05/14/2022 10:10 PM PG Care Time/CCT Total # of Minutes Spent Total Time Spent with Patient: Total time spent is greater than 50% in coordination of care (as documented) at patient's floor/unit and/or counseling patient: Coding Level of Care Code 48836 Initial Inpt Care Lvl 1 Diagnoses Splenomegaly R16.1 Moss syndrome D69.41
--- NOTE | 2022-05-17 11:36 | Consultation ---
Date of Consultation May 17, 2022 Assessment & Plan (1) Pancytopenia: (2) Splenomegaly: (3) Lymphadenopathy: Plan Ivy 67-year-old female who presented with hypercalcemia likely from malignancy. She had previously refused investigations including lymph node biopsy, PET/CT and bone marrow biopsy. She is now willing to undergo these tests to assess for hematologic malignancy such as lymphoma. Given elevated LDH and generalized lymphadenopathy with splenomegaly highly concerned that she has high-grade lymphoma. Recommend general surgery consult to see if excisional lymph node biopsy is possible while she is in the hospital. We will arrange for PET/CT and bone marrow biopsy as an outpatient. History of Present Illness Reason for Consultation: Hypercalcemia Attending Physician: Jeniffer Almodovar, History of Present Illness Ivy 67-year-old female who is a longstanding patient at [facility] previously been followed by Dr. Diggs for Castillo syndrome for which she received multiple treatments including IVIG, corticosteroids, rituximab, Promacta and Nplate. She discontinued treatment around 2019 and decided to pursue more holistic approach. She however continued intermittent follow-up at [facility] and I initially evaluated her in Dec, 2021. At that time, examination had revealed extensive cervical lymphadenopathy for which I recommended obtaining restaging imaging including PET/CT, excisional lymph node biopsy as well as bone marrow biopsy. Patient however declined my recommendations opting for continued observation. Recently her CBC had revealed abnormal lymphocytes which was concerning for possible aggressive hematologic malignancy for which [employer] FISH panel for CLL as well as high-grade lymphoma was obtained which was negative. She called our office last week complaining of worsening abdominal distention for which we recommended labs. Labs obtained at that time had revealed hypercalcemia with calcium level of 13.4. She received IV Zometa 4 mg x 1 dose on 05/13/2022. Repeat labs on 05/14/2022 revealed worsening hypercalcemia with calcium level of 14.5 for which I recommended she present to the ER. She subsequently received pamidronate with normalization of calcium level. CT A/P obtained during admission revealed significant splenomegaly as well as abdominal lymphadenopathy. During my evaluation of patient today, she complains of significant abdominal distention and lower extremity swelling. She is now willing to undergo work-up for lymphoma including excisional lymph node biopsy, PET/CT and bone marrow biopsy. Allergies Allergy/AdvReac Type Severity Reaction Status Date / Time Sulfa (Sulfonamide Allergy Rash Verified 09/30/22 23:36 Antibiotics) Home Medications Medication Instructions Recorded Confirmed Type furosemide 20 mg tablet 20 mg DAILY 05/14/22 05/14/22 History Patient History Medical History Headache Sinusitis Stye external Thrombocytopenia Social History Smoking Status: Never smoker Second Hand Exposure: No; Hx Alcohol Use: Yes Alcohol type: wine Hx Substance Use: No Preferred Language: Greek Communication Ability: Effective Property Maintenance Supervisor Required: No Beliefs That Will Affect Care: None Current Living Situation: Spouse Feels Safe at Home: Yes Assistive Devices: None Review of Systems Review of Systems: All systems reviewed & are unremarkable except as noted in HPI & below Physical Exam Constitutional: + ill appearing and + thin Eyes: + scleral abnormality (Icterus) Respiratory: normal respiratory effort, lungs clear to auscultation Cardiovascular: RRR, no murmur, no edema Extremities: + pedal edema Gastrointestinal (Abdomen): Inspection/Auscultation: + abdomen distended Percussion/Palpation: + splenomegaly Lymphatic: + cervical lymphadenopathy Results & Data ([facility]) Vital Signs (Past 12 Hours) Vital Signs Temp Pulse Pulse Resp BP BP Pulse Ox 05/17/22 11:21 36.8 C 73 16 138/72 93 05/17/22 08:01 36.6 C 65 16 125/70 95 05/17/22 07:48 96 H 05/17/22 03:14 36.7 C 68 16 122/71 94 05/17/22 00:22 62 O2 Del Method 05/17/22 11:21 Room Air 05/17/22 08:01 Room Air 05/17/22 07:48 05/17/22 03:14 Room Air 05/17/22 00:22 Diagnostic Findings ABDOMEN AND PELVIS CT WITHOUT CONTRAST HISTORY: Acutely altered mental status with distended abdomen distended abd TECHNIQUE: Multiaxial CT images of the abdomen and pelvis were performed without contrast. A dose lowering technique was utilized adhering to the principles of ALARA. COMPARISON STUDY: None. FINDINGS: Mild cardiomegaly. Slightly decreased attenuation of the cardiac blood pool may represent anemia. Coronary artery calcifications. Mildly prominent internal mammary chain lymph nodes are partially imaged. Trace right and small left pleural effusions. Mild subsegmental bibasilar atelectasis. No pneumatosis or pneumoperitoneum. The study is limited without the use of contrast. Markedly enlarged spleen displaces the adjacent loops of bowel. The spleen measures up to approximately 30 cm in length. Pathologically enlarged lymph nodes of the abdomen and pelvis with the largest lymph nodes within the periaortic distribution. A left periaortic lymph node on image 248 measures 3.5 x 2.1 cm. Additional pathologically enlarged pelvic sidewall lymph nodes measure up to 1.4 cm. Inguinal chain lymph nodes measure up to approximately 1.2 cm. Additional pathologic periportal and gastrohepatic lymph nodes. The pancreas, and adrenal glands are not well visualized. Partially distended gallbladder. The liver is unremarkable. Unremarkable kidneys. Hydronephrosis. Unremarkable urinary bladder and uterus. Surgical clips of the bilateral adnexal distributions. Atherosclerosis of the aorta. Mild nonspecific wall thickening of the distal esophagus. No bowel obstruction or bowel wall thickening. Trace ascites. Colonic diverticulosis. Hyperdense material within the noninflamed appendix may represent appendicolith versus retained enteric contrast. Mild generalized body wall edema. No acute fracture or destructive bone lesion identified. IMPRESSION: 1. Limited exam as above. No bowel obstruction or bowel wall thickening. 2. Marked splenomegaly with pathologic lymphadenopathy of the abdomen and pelvis. Findings are compatible with a lymphoproliferative disorder. Oncologic workup is needed. 3. Trace right and small left pleural effusions with trace abdominal pelvic ascites. PG Care Time/CCT Total # of Minutes Spent Total Time Spent with Patient: Total time spent is greater than 50% in coordination of care (as documented) at patient's floor/unit and/or counseling patient: Coding Level of Care Code 24948 Inpt Consult Level 4 Diagnoses Pancytopenia D61.818 Splenomegaly R16.1 Lymphadenopathy R59.1
[2022-05-17] MEDS ORDERED: POTASSIUM CHLORIDE CRTAB 20 MEQ TABCR PO STA (17:40)
[2022-05-18 08:03] LABS: Hematocrit (blood only) 26.6 % (34.1-44.9); Hemoglobin 8.4 g/dl (12.0-16.0); Mean Corpuscular Hemoglobin 34.9 pg (25.0-34.0); Mean Corpuscular Hgb Conc 31.6 g/dL (32.0-36.0); Mean Corpuscular Volume 110.4 fL (80.0-100.0); Mean Platelet Volume 11.5 fL (9.4-12.3); Platelet Count 58 K/uL (130-400); RDW Coefficient of Variation 17.1 % (11.5-14.5); RDW Standard Deviation 69.3 fL (36.4-46.3); Red Blood Count 2.41 M/uL (3.93-5.22); White Blood Count 3.63 K/ul (4.8-10.8)
[2022-05-18] MEDS: predniSONE 50 MG TAB PO SCH (08:22)
--- NOTE | 2022-05-18 08:40 | Hospitalist Progress Note ---
Date of Service May 18, 2022 Assessment & Plan (1) Hypercalcemia: Plan: Presented at the request of Dr. Frost to the emergency room due to a calcium of 13.4. Received IV fluids and pamidronate on admission. Calcium returned to normal following these interventions. Daily BMP. Hypercalcemia likely due to underlying hematologic malignancy. Evaluation of such as described below. 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 Patient discontinued treatments in 2019 in favor of a holistic approach. Patient was reevaluated by Dr. Frost in December 2021 and at that time was noted to have massive splenomegaly and extensive cervical lymphadenopathy. Last week patient decided to pursue evaluation of her ongoing medical issues, including bone marrow biopsy, PET scan, excisional biopsy. Given significant concern for high-grade lymphoma, general surgery was consulted this admission for excisional lymph node biopsy while patient is in-house. Excisional lymph node biopsy was performed today without incident. Pathology was sent. (3) Autoimmune hemolytic anemia: Plan: See above (4) Pancytopenia: Plan: Chronic. History of macrocytic anemia, follows with Dr. Frost as described above. Presented with WBC 4.34, hemoglobin 8.9, platelets 70. Hemoglobin decreased to 6.4 on 05/15 without evidence of bleeding; is now s/p 1 unit of packed red blood cells. Hemoglobin stable at 8.4. Platelets stable for the last several days at 58. No evidence of bleeding from any source. Daily CBC. (5) Splenomegaly: Plan: See above. (6) Lymphadenopathy: Plan: See above. Plan CODE STATUS: Full code FEN: N.p.o. at midnight for lymph node biopsy DVT prophylaxis: Ambulate on demand; defer chemoprophylaxis due to low platelets Dispo: Med/Surg with Tele Admission and Anticipated Discharge Date Admission Date: May 14, 2022 Subjective Patient without acute events overnight. She was scheduled for excisional lymph node biopsy at noon today. Patient was seen after her lymph node biopsy and she reports some mild pain at excision site, as well as some fatigue, but otherwise feels well. Review of Systems Constitutional: no fever and no chills Respiratory: no cough and no dyspnea Cardiovascular: no chest pain and no palpitations Gastrointestinal: no abdominal pain, no nausea and no vomiting Physical Exam Physical Exam: awake/alert, no distress Constitutional: WD/WN, vitals as above Respiratory: normal respiratory effort, lungs clear to auscultation Cardiovascular: RRR, no murmur, no edema Gastrointestinal (Abdomen): Inspection/Auscultation: + abdomen distended Percussion/Palpation: + abdomen tender (mild generalized abdominal discomfort) and + splenomegaly Skin: no rashes, warm and dry Psychiatric: A+Ox3, euthymic affect Results & Data Results & Data ([facility]) Vital Signs (Past 12 Hours) Vital Signs Temp Pulse Pulse Resp BP BP Pulse Ox 05/18/22 07:25 37.0 C 108 H 124/71 93 05/18/22 07:18 82 05/18/22 03:03 36.6 C 69 18 130/69 96 05/18/22 00:17 80 05/17/22 23:49 36.7 C 80 18 113/46 L 94 O2 Del Method 05/18/22 07:25 Room Air 05/18/22 07:18 05/18/22 03:03 Room Air 05/18/22 00:17 05/17/22 23:49 Room Air PG Care Time/CCT Total # of Minutes Spent Total Time Spent with Patient: Total time spent is greater than 50% in coordination of care (as documented) at patient's floor/unit and/or counseling patient: Coding Level of Care Code 38053 Subseq Hosp Care Lvl 3 Diagnoses Hypercalcemia E83.52 Moss syndrome D69.41 Autoimmune hemolytic anemia D59.10 Pancytopenia D61.818 Splenomegaly R16.1 Lymphadenopathy R59.1
[2022-05-18 08:51] LABS: Potassium 3.7 mmol/L (3.5-5.1)
[2022-05-18 08:52] LABS: Calcium 8.5 mg/dl (8.5-10.1); Creatinine Clr Calc Pharmacy 64.6 ml/min; Est GFR (African American) 100.4 ml/min; Est GFR (Non-African American) 86.7 ml/min
[2022-05-18 09:21] LABS: BUN Creatinine Ratio 45.8 (10-20)
[2022-05-18] MEDS ORDERED: ATROPINE SULFATE 0.1 MG/ML 10ML SYR IV PRN (11:44)
[2022-05-18] MEDS ORDERED: ePHEDrine sulfate 50 MG/ML AMP IV PRN (11:44)
[2022-05-18] MEDS ORDERED: ONDANSETRON INJ 2 MG/ML 2 ML VIAL IV PRN (11:44)
[2022-05-18] MEDS ORDERED: ceFAZolin 2,000 MG/15 ML IV PUSH IV ONE (11:44)
[2022-05-18] MEDS ORDERED: fentaNYL citrate 100 MCG/2 ML VIAL IV PRN (11:44)
--- NOTE | 2022-05-18 11:44 | Anesthesiology Consultation ---
Date of Service May 18, 2022 Assessment & Plan Chart Review Chart Review: Acceptable Risk for Surgery and Patient NOT seen in Pre Admission Testing Consults Requested none ASA ASA3 Proposed Anesthesia Anesthesia Type: General Risk / Benefits Reviewed With: PT / POA / Parent / Guardian, Accepts Plan and Informed Consent Obtained History Surgery Operation Date: 05/18/22 11:55 Proposed Procedures p Cervical Lymph Node Biopsy - Nick Sanchez, DO Height/Weight Height: 5 ft 5 in Weight: 54 kg Allergies Allergy/AdvReac Type Severity Reaction Status Date / Time Sulfa (Sulfonamide Allergy Rash Verified 05/14/22 23:36 Antibiotics) Medications Home Medications Medication Instructions Recorded Confirmed Last Taken furosemide 20 mg tablet 20 mg DAILY 05/14/22 05/14/22 Unknown Active Medications Generic Name Dose Route Start Last Admin Trade Name Freq PRN Reason Stop Dose Admin Prednisone 50 mg 05/15/22 09:00 05/18/22 08:22 Prednisone 50 Mg Tab PO 06/14/22 08:59 Not Given DAILY JESSICA NPO Date Last Intake of Fluids: 05/17/22 Time Last Intake of Fluids: 22:00 Date Last Intake of Solids: 05/17/22 Time Last Intake of Solids: 22:00 Past Medical History Medical History Headache Sinusitis Stye external Thrombocytopenia Exercise / Class Metabolic Activity II 4-5 Yardwork/Stairs/Walk up hill Past Anesthesia History No Hx of Anesthesia Complications and No Family Hx of Anesthesia Complications History of PONV No Hx of PONV and No Hx of Motion Sickness Social History Smoking Status: Never smoker Do You Dip or Chew Tobacco: No Hx Alcohol Use: Yes Alcohol type: wine alcohol intake frequency: holidays/special occasions only Hx Substance Use: No substance use type: does not use Physical Exam Vital Signs Last Vital Signs Temp 36.6 C 05/18/22 11:15 Pulse 102 H 05/18/22 11:15 Resp 18 05/18/22 11:15 BP 142/81 H 05/18/22 11:15 Pulse Ox 99 05/18/22 11:15 O2 Del Method 05/18/22 07:25 O2 Flow Rate 0 05/16/22 11:30 ENMT Mouth: no dentition abnormality Thyromental Distance: > or= 3.5 Finger Breadths Mallampati Class: II Neck normal visual inspection Respiratory normal respiratory effort Auscultation: lungs clear to auscultation bilaterally Cardiovascular Rate/Rhythm: regular rate and regular rhythm Psychiatric Orientation: alert Testing Laboratory Results 05/18/22 07:07 05/18/22 07:07 Urine Color Dark Yellow 05/15/22 Unknown Urine Appearance Clear (Clear) 05/15/22 Unknown Urine pH 5.5 (4.5-7.5) 05/15/22 Unknown Ur Specific Kinney 1.014 (1.000-1.030) 05/15/22 Unknown Urine Protein Negative (Negative) 05/15/22 Unknown Urine Glucose (UA) Negative (Negative) 05/15/22 Unknown Urine Ketones Negative (Negative) 05/15/22 Unknown Urine Nitrite Negative (Negative) 05/15/22 Unknown Ur Leukocyte Esterase Negative (Negative) 05/15/22 Unknown Blood Type A Negative 05/15/22 03:46 Antibody Screen POSITIVE A 05/15/22 03:46 05/15/22 01:21 Aerobic Blood Culture - Preliminary Blood No growth in Aerobic bottle after 48 hours. Anaerobic Blood Culture - Preliminary No growth in Anaerobic bottle after 48 hours. 05/15/22 01:21 Aerobic Blood Culture - Preliminary Blood No growth in Aerobic bottle after 48 hours. Anaerobic Blood Culture - Preliminary No growth in Anaerobic bottle after 48 hours.
--- NOTE | 2022-05-18 11:45 | Surgery Progress Note ---
Date of Service May 18, 2022 Assessment & Plan (1) Lymphadenopathy: Plan: We will proceed with a cervical lymph node biopsy today Consent was obtained, risk discussed including bleeding, infection, lymphocele, injury to surrounding structures Admission and Anticipated Discharge Date Admission Date: May 14, 2022 Subjective Patient seen and examined. Afebrile. No acute events overnight. Review of Systems Constitutional: no fever and no chills Physical Exam Physical Exam: awake/alert, no distress ENMT: Palpable LN's posteriorly in hair line, + R cervical LN, and R infraclavicular LN Respiratory: normal respiratory effort Gastrointestinal (Abdomen): Inspection/Auscultation: + abdomen distended Percussion/Palpation: + abdomen tender (mild generalized abdominal discomfort) and + splenomegaly Results & Data ([facility]) Vital Signs (Past 12 Hours) Vital Signs Temp Pulse Pulse Resp BP BP Pulse Ox 05/18/22 11:15 36.6 C 102 H 18 142/81 H 99 05/18/22 07:25 37.0 C 108 H 124/71 93 05/18/22 07:18 82 05/18/22 03:03 36.6 C 69 18 130/69 96 05/18/22 00:17 80 05/17/22 23:49 36.7 C 80 18 113/46 L 94 O2 Del Method 05/18/22 11:15 05/18/22 07:25 Room Air 05/18/22 07:18 05/18/22 03:03 Room Air 05/18/22 00:17 05/17/22 23:49 Room Air PG Care Time/CCT Total # of Minutes Spent Total Time Spent with Patient: Total time spent is greater than 50% in coordination of care (as documented) at patient's floor/unit and/or counseling patient: Coding Level of Care Code 54769 Subseq Hosp Care Lvl 1 Diagnoses Lymphadenopathy R59.1
[2022-05-18] MEDS ORDERED: BUPIVACAINE/EPINEPHRINE 0.25% 1:200,000 30 ML VIAL ONE (12:02)
[2022-05-18] MEDS ORDERED: fentaNYL citrate 100 MCG/2 ML VIAL ONE (12:03)
[2022-05-18] MEDS ORDERED: MIDAZOLAM HCL 1 MG/ML 2ML VIAL ONE (12:03)
[2022-05-18] MEDS ORDERED: ceFAZolin 2000MG 2,000 MG/15 ML SYR IV ONE (12:15)
[2022-05-18] MEDS ORDERED: LIDOCAINE 2% MPF LOCAL 5 ML VIAL INFIL ONE (12:41)
[2022-05-18] MEDS ORDERED: ONDANSETRON INJ 2 MG/ML 2 ML VIAL ONE (12:41)
[2022-05-18] MEDS ORDERED: PROPOFOL IV EMULSION 10 MG/ML 20 ML VIAL IV ONE (12:41)
--- NOTE | 2022-05-18 13:03 | Post Operative Brief Note ---
PG Immediate Post Op with CF Date of Surgery May 18, 2022 Pre & Post Diagnosis Operation Date: 05/18/22 11:55 Pre-Op Diagnosis: HYPERCALCEMIA, lymphadenopathy, splenomegaly Post-Op Diagnosis: HYPERCALCEMIA, lymphadenopathy, splenomegaly I identified the patient and participated in the time-out.: Yes Procedure Operation Date: 05/18/22 11:55 Actual Procedures p Cervical Lymph Node Biopsy(Right) - Nick Sanchez DO Surgeon Nick Sanchez DO Adult Parole Officer Mayda Paige PA-C Estimated Blood Loss 5 Findings Consistent with Post-Op Diagnosis Specimens Specimen Description: 1.Right Cervical Lymph Node Biopsy Anesthesia Type General Complications none Disposition Disposition: Recovery Room
--- NOTE | 2022-05-18 13:08 | Operative Report ---
PG Post Operative Report Pre & Post Diagnosis Operation Date: 05/18/22 11:55 Pre-Op Diagnosis: HYPERCALCEMIA, lymphadenopathy, splenomegaly Post-Op Diagnosis: HYPERCALCEMIA, lymphadenopathy, splenomegaly I identified the patient and participated in the time-out.: Yes Procedure Operation Date: 05/18/22 11:55 Actual Procedures p Cervical Lymph Node Biopsy(Right) - Nick Sanchez DO Surgeon Nick Sanchez DO Executive Vice President Mayda Paige PA-C Estimated Blood Loss 5 Findings Consistent with Post-Op Diagnosis Specimens Right cervical lymph node to pathology Drains None Anesthesia Type General Complications none Disposition Disposition: Recovery Room Indications 67-year-old female with extensive lymphadenopathy, splenomegaly with need for tissue diagnosis Description of Procedure The patient was brought to the OR and placed in the supine position. At this time she underwent General LMA anesthesia without issue. She was given appropriate pre-operative antibiotics. Her neck was then turned to the left. Her right neck was prepped and draped in the usual sterile fashion. A timeout was called. The procedure was verified as cervical lymph node biopsy. Surgical, anesthesia and nursing teams agreed and the procedure was begun. After injection of 0.25% Marcaine with epinephrine, a longitudinal incision was made directly over the palpable right cervical lymph node using a #15 blade scalpel. This was carried down to the subcutaneous tissue using electrocautery. The platysma muscle was then elevated and divided sharply. The lymph node was identified and dissected from surrounding tissue using sharp and blunt dissection. The lymph node was excised only leaving a very small part in the deep portion of the incision. At this time the incision was irrigated until clear. Hemostasis was achieved using electrocautery. Hemostasis was complete. The incision was then closed in layers with 3-0 Vicryl in the platysma muscle and the skin using 4-0 Monocryl in a running subcuticular fashion. Sterile dressing was applied. The patient was awakened from anesthesia and taking to PACU having remained stable throughout the entire case. All needle and sponge counts correct x 2. The physician shop assistant was present scrubbed for the entire case. She was essential in positioning, prepping and draping the patient, retraction exposure, closure of the incision and placement of the dressing. I attest to the content of the Intraoperative Record and any orders documented therein. Any exceptions are noted below.
[2022-05-18] MEDS ORDERED: oxyCODONE HCL IR 5 MG TAB (IMMEDIATE RELEASE) PO PRN (14:06)
[2022-05-18] MEDS ORDERED: MoRPHine SULFATE 2 MG/ML CARP IV PRN (14:06)
--- NOTE | 2022-05-18 15:14 | Anesthesiology Progress Note ---
Date of Service May 18, 2022 Anesthesia Post Procedure Vital Signs Vital Signs: Temp Pulse Pulse Pulse Resp BP BP 05/18/22 14:11 36.7 C 79 18 125/61 05/18/22 13:40 37.3 C 78 22 111/60 05/18/22 13:30 81 22 112/61 05/18/22 13:20 77 21 115/63 05/18/22 13:14 37.0 C 77 15 106/61 05/18/22 11:15 36.6 C 102 H 18 142/81 H 05/18/22 07:25 37.0 C 108 H 124/71 05/18/22 07:18 82 05/18/22 03:03 36.6 C 69 18 130/69 05/18/22 00:17 80 05/17/22 23:49 36.7 C 80 18 113/46 L 05/17/22 19:55 36.4 C L 74 18 133/71 05/17/22 15:42 36.5 C 81 18 127/74 05/17/22 15:37 85 Pulse Ox O2 Del Method O2 Flow Rate 05/18/22 14:11 94 05/18/22 13:40 94 Room Air 05/18/22 13:30 94 Room Air 05/18/22 13:20 100 Oxymask 6 05/18/22 13:14 100 Oxymask 6 05/18/22 11:15 99 05/18/22 07:25 93 Room Air 05/18/22 07:18 05/18/22 03:03 96 Room Air 05/18/22 00:17 05/17/22 23:49 94 Room Air 05/17/22 19:55 96 Room Air 05/17/22 15:42 96 05/17/22 15:37 Transfer of Care Handoff Completed per policy Notes Mental Status: alert / awake / arousable Patient Amnestic to Procedure: Yes Nausea / Vomiting: adequately controlled Pain: adequately controlled Airway Patency, RR, SpO2: stable & adequate BP & HR: stable & adequate Hydration State: stable & adequate Anesthetic Complications: no major complications apparent
[2022-05-19 07:18] LABS: Hematocrit (blood only) 23.8 % (34.1-44.9); Hemoglobin 7.1 g/dl (12.0-16.0); Mean Corpuscular Hemoglobin 34.1 pg (25.0-34.0); Mean Corpuscular Hgb Conc 29.8 g/dL (32.0-36.0); Mean Corpuscular Volume 114.4 fL (80.0-100.0); Mean Platelet Volume 11.5 fL (9.4-12.3); Nucleated RBC # (auto) 0.02 K/uL (0-0); Nucleated RBC % (auto) 0.6 %; Platelet Count 51 K/uL (130-400); RDW Coefficient of Variation 16.8 % (11.5-14.5); Red Blood Count 2.08 M/uL (3.93-5.22); White Blood Count 3.62 K/ul (4.8-10.8)
[2022-05-19 07:26] LABS: BUN Creatinine Ratio 38.2 (10-20); Calcium 8.2 mg/dl (8.5-10.1); Creatinine Clr Calc Pharmacy 68.6 ml/min; Est GFR (African American) 104.9 ml/min; Est GFR (Non-African American) 90.5 ml/min; Potassium 3.8 mmol/L (3.5-5.1)
[2022-05-19] MEDS: predniSONE 50 MG TAB PO SCH (07:35)
--- NOTE | 2022-05-19 07:59 | Surgery Progress Note ---
Date of Service May 19, 2022 Assessment & Plan (1) Lymphadenopathy: Plan: POD#1 R cervical lymph node biopsy incision healing well, c/d/i. minimal pain at site may shower over incision, pat dry pathology pending...pt to follow up with oncology as output may f/u with dr. schmitt in 2 weeks for incision check we will sign off, please call back with any questions/concerns Admission and Anticipated Discharge Date Admission Date: May 14, 2022 Subjective Patient feeling well. Had some numbness around R ear that has resolved. Minimal pain at incision site. Asking when she can go home. Physical Exam Physical Exam: awake/alert, no distress Neck: R cervical incision c/d/i without signs of infection. skin glue intact Results & Data ([facility]) Vital Signs (Past 12 Hours) Vital Signs Temp Pulse Pulse Resp BP Pulse Ox O2 Del Method 05/19/22 07:16 81 05/19/22 02:38 36.8 C 100 H 18 107/65 96 Room Air 05/19/22 00:00 83 05/18/22 23:24 36.7 C 85 18 121/69 93 Room Air PG Care Time/CCT Total # of Minutes Spent Total Time Spent with Patient: Total time spent is greater than 50% in coordination of care (as documented) at patient's floor/unit and/or counseling patient: Coding Level of Care Code None Diagnoses Lymphadenopathy R59.1
--- NOTE | 2022-05-19 10:01 | Discharge Summary ---
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 Patient states she follows with Dr. Frost for oncology, states she has an autoimmune condition that she doesn't understand and is trying to treat with homeopathy. She states her abdomen has become much more swollen over the past 6 months and she has been experiencing abd pain below her belly. Patient describes unintentional weight loss ongoing for the past 2 years. States her legs are swollen, she has difficulty walking due to pain and weakness, denies any falls. States she always feels dizzy and can't focus, her vision has become blurrier over the last 6 months, last week she felt chills. She denies change in hearing, SOB or nausea. Patient states she was previously a patient of Dr. Diggs, her spleen was also enlarged back then but no to this degree, he had advised her to remove it at that time but she refused. Patient has never had a biopsy of her lymph nodes. She has never had prior surgeries. She was recently started on lasix, otherwise uses homeopathic medicine. Family history dad had lung cancer. She is aware she has anemia, may or may not have Grave's disease. She denies smoking, rare alcohol. Per our records patient was a patient of Dr. 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 She has recently connected with Dr. Frost in 12/24/21 and again today, was recommended excisional lymph node biopsy and PET/CT scan, patient had so far declined any forms of treatment. Admission Exam Per Admitting Provider Constitutional: + thin, cooperative and comfortable Eyes: PERRL, conjunctivae normal, anicteric sclerae ENMT: enleraged anterior and posterior cervical lymph nodes b/l Neck: trachea midline Respiratory: normal respiratory effort, lungs clear to auscultation Cardiovascular: Rate/Rhythm: + tachycardic Vessels: + bounding carotid pulses Extremities: + edema (+2 pitting b/l LE up to knee) Chest (Breasts): Chest: normal inspection of chest Gastrointestinal (Abdomen): Inspection/Auscultation: + abdomen distended Percussion/Palpation: + abdomen tender (b/l lower quadrant), + splenomegaly and + abdomen firm Skin: no rashes, warm and dry Neurologic: CN's II-XI intact bilaterally Principal Dx & Hospital Course #1 = Principal Diagnosis (1) Hypercalcemia: Presented at the request of Dr. Frost to the emergency room due to a calcium of 13.4. Received IV fluids and pamidronate on admission. Calcium returned to normal following these interventions. Hypercalcemia likely due to underlying hematologic malignancy. Evaluation of such as described below. 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 Patient discontinued treatments in 2019 in favor of a holistic approach. Patient was reevaluated by Dr. Frost in December 2021 and at that time was noted to have massive splenomegaly and extensive cervical lymphadenopathy. Last week patient decided to pursue evaluation of her ongoing medical issues, including bone marrow biopsy, PET scan, excisional biopsy. Given significant concern for high-grade lymphoma, general surgery was consulted this admission for excisional lymph node biopsy while patient is in-house. Excisional lymph node biopsy was performed 05/20 without incident. Pathology was sent and pending. (3) Autoimmune hemolytic anemia: See above (4) Pancytopenia: Chronic. History of macrocytic anemia, follows with Dr. Frost as described above. Presented with WBC 4.34, hemoglobin 8.9, platelets 70. Hemoglobin decreased to 6.4 on 05/15 without evidence of bleeding; is now s/p 1 unit of packed red blood cells. Hemoglobin stable at ~9. Platelets stable for the last several days at 58. No evidence of bleeding from any source. CBC repeat on Tuesday ordered. Follow up with Dr. Frost outpatient. (5) Splenomegaly: See above. (6) Lymphadenopathy: See above. Plan Dispo: home with self care Discharge Exam Constitutional WD/WN, vitals as above Skin right cervical lymph node biopsy site clean, no drainage, no bleeding. Psychiatric A+Ox3, euthymic affect Updated Medication List Medication Instructions Recorded Confirmed Type furosemide 20 mg tablet 20 mg DAILY 05/14/22 05/14/22 History Hospital Stay Data Consultations 05/14/22 22:41 ED Decision to Admit Stat 05/14/22 22:48 Consult Oncology Routine 05/17/22 09:04 Consult General Surgery Routine Procedures Performed Operation Date: 05/18/22 11:55 Actual Procedures p Cervical Lymph Node Biopsy(Right) - Nick Sanchez, DO Diagnostic Imagining Performed 05/14/22 21:00 CT abd pelvis wo con Stat CT head/brain wo con Stat 05/15/22 00:26 US venous doppler LE BI Urgent Pending Results Patient Have Any Pending Studies at Discharge: Yes (Lymph node pathology) Discharge Instructions Given to Patient (Per Discharging Provider) You were admitted today hospital for high calcium levels in your blood, which is dangerous and can cause things like heart arrhythmias. You were given fluids and medications to help decrease your calcium, which was normal by the time you left the hospital. While you were here it was discussed having a lymph node biopsy in order to try to determine why her spleen is enlarged and why her cell lines are abnormal. They were able to do a lymph node biopsy without issue. You will have follow-up with Dr. Sanchez. Please be sure to call his office at the provided number above if you do not hear for a follow-up appointment by Tuesday. Please also be sure to call Dr. Frost's office for a follow-up appointment. It will take several days for the pathology results of the lymph node biopsy to come back. If in the meantime if you have any concerns with regard to your health, please call your primary care doctor. If you do not have one, please establish care with a primary care physician in your area. If you have any chest pain, trouble breathing, inability to keep food down, please seek urgent medical evaluation. Total Time Total Time Spent Total Time Spent (In Minutes): 35 Coding Level of Care Code D/C DAY MANAGEMENT >30 MINS Diagnoses Hypercalcemia E83.52 Moss syndrome D69.41 Autoimmune hemolytic anemia D59.10 Pancytopenia D61.818 Splenomegaly R16.1 Lymphadenopathy R59.1
[2022-05-19 10:16] LABS: Hematocrit (blood only) 29.4 % (34.1-44.9)
--- NOTE | 2022-05-27 05:44 | Coding Query ---
PATHOLOGY To promote full compliance with coding requirements relating to patient care, physician participation is requested in all cases of outpatient coder uncertainty. Please assist us with the question(s) below: Please review the Pathology report from the cervical lymph node biopsy and document any relevant diagnosis(es) below: Diagnosis(es): large B cell lymphoma MTDD
== END 2022-05-19 13:35 | disposition home or self-care (01) | DRG 824 ==
LOC: ED 19:09 → 2N 22:47 → SUATTDRO 22:47 → 2N 05-15 02:34
DX: I10 Essential (primary) hypertension; R59.1 Generalized enlarged lymph nodes; D47.9 Neoplasm of uncertain behavior of lymphoid, hematopoietic and related tissue, unspecified; D59.10 Autoimmune hemolytic anemia, unspecified; D61.818 Other pancytopenia; E83.52 Hypercalcemia; C83.31 Diffuse large B-cell lymphoma, lymph nodes of head, face, and neck; R18.8 Other ascites; D69.41 Evans syndrome; R16.1 Splenomegaly, not elsewhere classified

== ENCOUNTER 2023-02-03 17:58 | Inpatient (IN) ==
--- NOTE | 2023-02-03 18:19 | Emergency Department Note ---
Impression & Plan B-cell lymphoma, Thrombocytopenia, Tumor lysis syndrome ED Provider Note NAME: LAVONNE BARRERA AGE: 67 SEX: F : 1955 ARRIVES VIA: Walk-In INFORMANT: Patient, ED PROVIDER(S): Naif Alonzo DO CHIEF COMPLAINT: Generalized weakness HPI: The patient is a 67-year-old female who has a history of B-cell lymphoma who presented to the emergency department for an evaluation of generalized weakness. The patient had outpatient laboratory studies done this morning. She was called today by her primary oncologist and told to go to the emergency department because of abnormal labs. The patient denies having any GI bleeding. She denies having any chest pain. She does complain of generalized weakness as well as shortness of breath especially with ambulation. She was found to have an elevation in her white blood cell count as well as an elevation in her LDH as well as her uric acid. The patient was felt to be in need of inpatient ch emotherapy and was sent to the emergency department. ROS: See above HPI for pertinent positives & negatives. A total of 10 systems reviewed and were otherwise negative. PAST MEDICAL HISTORY: See Below PAST SURGICAL HISTORY: See Below FAMILY HISTORY: See Below SOCIAL HISTORY: See Below HOME MEDICATIONS: See Below ALLERGIES: See Below VITALS: See Below PHYSICAL EXAMINATION: GENERAL: Patient is awake alert in no acute distress patient is resting comfortably and showing no signs of anxiety EYES: The conjunctivae are pale. The pupils are round and reactive. EARS, NOSE, MOUTH AND THROAT: The nose is without any evidence of any deformity. NECK: The neck is nontender and supple. RESPIRATORY: Normal respiratory effort is noted there is no evidence of wheezing rhonchi or rales CARDIOVASCULAR: Tachycardic and regular heart sounds were noted to auscultation. There is no definite murmur. GASTROINTESTINAL: The abdomen is distended. There is severe splenomegaly. MUSCULOSKELETAL/EXTREMITIES: There is no evidence of gross deformity full range of motion is noted in the hips and shoulders. SKIN: Skin was cool and dry. There is no significant pedal edema. NEUROLOGIC: Patient is awake alert and oriented x3. MEDICAL DECISION MAKING: The patient is a 67-year-old female who presented to the emergency department for an evaluation at the request of her primary oncologist. The patient had outpatient laboratory studies which showed a very elevated white blood cell count as well as a high uric acid and high LDH. There is concern the patient may require emergent therapy. I discussed the patient's condition with her prim manolo oncologist. She was able to order some medications in the emergency department. She was also treated with IV fluids IV antibiotics and oral allopurinol. I discussed her condition with the oncology group at [facility] they have agreed to accept the patient in transfer for further management and disposition. Transfer paperwork was filled out by myself. Triage Nursing notes reviewed. Prior medical records reviewed Vital Signs: reviewed and remarkable for tachycardia. Differential diagnosis: Infection, dehydration, metabolic abnormality, hypo/hyperglycemia, electrolyte disturbance, anemia, hypoxia, cardiac sources, intracerebral event, toxicologic, neurologic, as well as other pathologies. ER treatment provided: See below Diagnostics interpreted by me: ECG: EKG was obtained in the emergency department. My interpretation is sinus tachycardia 140 bpm. There is no ectopy. Nonspecific T wave flattening was noted. This was compared to a tracing from December 27, 2022. The T wave flattening is new compared to the previous tracing otherwise no significant changes were noted. Cardiac Monitoring: An order was placed for continuous cardiac monitoring. The monitor shows a rate of 126 bpm with sinus tachycardia. Laboratory studies: As stated above and show below. Imaging studies: See below. Radiographic imaging was reviewed by myself Consultation(s): I discussed this case with Dr. Frost who is the patient's local oncologist. I discussed this case with Dr. Corrales who is the oncologist at [facility]. He is agreed except the patient in transfer. Discussed this case with Dr. Man who is on-call for the [facility] hospitalist group. He will evaluate the patient for medical management pending transfer. ED COURSE: Procedures: none PDMP:reviewed and no issues Critical Care: I have personally spent greater than 45 minutes of critical care time in the direct management of this patient. This includes bedside care, interpretation of diagnostic studies, and testing, discussion with consultants, patient, and family members, and other required patient management activities. This 45 minutes is in excess of all separately billable procedures. 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 Thrombocytopenia Surgical History History of colonoscopy History of tubal ligation S/P lymph node biopsy (05/18/22) Cervical Lymph Node Biopsy(Right) - Nick Sanchez DO Family History Other Family history non-contributory No family history of adverse response to anesthesia Social History Smoking Status: Never smoker Second Hand Exposure: Yes (hx); Do You Dip or Chew Tobacco: No; Hx Alcohol Use: No Hx Substance Use: No Preferred Language: Estonian Communication Ability: Effective Criminal Defense Attorney Required: No Beliefs That Will Affect Care: None marital status: Current Living Situation: Spouse Feels Safe at Home: Yes Assistive Devices: None Allergies Allergies Allergy/AdvReac Type Severity Reaction Status Date / Time Sulfa (Sulfonamide Allergy Intermediate Rash Verified 02/03/23 19:08 Antibiotics) Home Meds Home Medications Medication Instructions Recorded Confirmed No Known Home Medications 02/03/23 02/03/23 Results & Data (ED) Vital Signs Vital Signs - 24 hr 02/03/23 18:04 02/03/23 18:27 02/03/23 19:11 Temperature 36.3 C L 37.7 C H Temperature Source Skin Oral Pulse Rate 136 H 135 H Pulse Rate from SpO2 Sensor Respiratory Rate 16 16 Respiratory Effort / Characteristics Non-Labored Respiratory Depth Normal Blood Pressure 127/80 Blood Pressure Mean 95 Blood Pressure Position Sitting Pulse Oximetry 95 94 Oxygen Delivery Method Room Air Sepsis Recent Fever Within 48 Hours No Sepsis New/Unexplained Change in Mental Status No Sepsis Action Taken by Nursing No Action Required 02/03/23 19:11 02/03/23 18:23 02/03/23 18:30 Temperature Temperature Source Pulse Rate 126 H 135 H 137 H Pulse Rate from SpO2 Sensor 135 H 130 H Respiratory Rate 18 22 20 Respiratory Effort / Characteristics Respiratory Depth Blood Pressure Blood Pressure Mean Blood Pressure Position Pulse Oximetry 94 93 94 Oxygen Delivery Method Room Air Sepsis Recent Fever Within 48 Hours Sepsis New/Unexplained Change in Mental Status Sepsis Action Taken by Nursing 02/03/23 18:45 02/03/23 19:00 02/03/23 19:15 Temperature Temperature Source Pulse Rate 136 H 126 H Pulse Rate from SpO2 Sensor 135 H 139 H 127 H Respiratory Rate 22 22 Respiratory Effort / Characteristics Respiratory Depth Blood Pressure Blood Pressure Mean Blood Pressure Position Pulse Oximetry 94 94 94 Oxygen Delivery Method Sepsis Recent Fever Within 48 Hours Sepsis New/Unexplained Change in Mental Status Sepsis Action Taken by Nursing 02/03/23 19:30 02/03/23 19:45 02/03/23 20:39 Temperature Temperature Source Pulse Rate 118 H 120 H 121 H Pulse Rate from SpO2 Sensor 118 H 120 H Respiratory Rate 24 24 24 Respiratory Effort / Characteristics Respiratory Depth Blood Pressure Blood Pressure Mean Blood Pressure Position Pulse Oximetry 95 94 Oxygen Delivery Method Sepsis Recent Fever Within 48 Hours Sepsis New/Unexplained Change in Mental Status Sepsis Action Taken by Nursing 02/03/23 20:45 02/03/23 21:00 02/03/23 21:15 Temperature 37.2 C Temperature Source Pulse Rate 114 H 113 H 112 H Pulse Rate from SpO2 Sensor 114 H 113 H 112 H Respiratory Rate 24 24 24 Respiratory Effort / Characteristics Respiratory Depth Blood Pressure 112/70 Blood Pressure Mean 84 Blood Pressure Position Pulse Oximetry 95 96 95 Oxygen Delivery Method Sepsis Recent Fever Within 48 Hours Sepsis New/Unexplained Change in Mental Status Sepsis Action Taken by Nursing 02/03/23 21:30 02/03/23 21:45 02/03/23 22:00 Temperature Temperature Source Pulse Rate 114 H 114 H 119 H Pulse Rate from SpO2 Sensor 115 H 114 H 119 H Respiratory Rate 24 24 24 Respiratory Effort / Characteristics Respiratory Depth Blood Pressure Blood Pressure Mean Blood Pressure Position Pulse Oximetry 95 95 96 Oxygen Delivery Method Sepsis Recent Fever Within 48 Hours Sepsis New/Unexplained Change in Mental Status Sepsis Action Taken by Nursing 02/03/23 22:15 02/03/23 22:30 02/03/23 22:45 Temperature 37.4 C Temperature Source Pulse Rate 120 H 113 H 117 H Pulse Rate from SpO2 Sensor 119 H 113 H 118 H Respiratory Rate 24 24 24 Respiratory Effort / Characteristics Respiratory Depth Blood Pressure 110/59 L Blood Pressure Mean 76 Blood Pressure Position Pulse Oximetry 95 94 95 Oxygen Delivery Method Sepsis Recent Fever Within 48 Hours Sepsis New/Unexplained Change in Mental Status Sepsis Action Taken by Nursing 02/03/23 23:00 Temperature Temperature Source Pulse Rate 116 H Pulse Rate from SpO2 Sensor 115 H Respiratory Rate 22 Respiratory Effort / Characteristics Respiratory Depth Blood Pressure 113/57 L Blood Pressure Mean 75 Blood Pressure Position Pulse Oximetry 93 Oxygen Delivery Method Room Air Sepsis Recent Fever Within 48 Hours Sepsis New/Unexplained Change in Mental Status Sepsis Action Taken by Longterm Medications Current Medication List: was personally reviewed by me Laboratory Data Attestation: I reviewed the patient's lab results. 02/03/23 18:39 02/03/23 18:39 Lab Results 02/03/23 02/03/23 02/03/23 Range/Units 17:00 18:37 18:39 WBC 18.56 H (4.8-10.8) K/ul RBC 3.45 L (4.20-5.40) M/uL Hgb 9.6 L (12.0-16.0) g/dl Hct 29.5 L (37.0-47.0) % MCV 85.5 (80.0-100.0) fL MCH 27.8 (25.0-34.0) pg MCHC 32.5 (32.0-36.0) g/dL RDW Std Deviation 55.0 H (36.4-46.3) fL RDW Coeff of Desire 18.4 H (11.5-14.5) % Plt Count 82 L (130-400) K/uL MPV 10.9 (9.4-12.4) fL Absolute Nucleated RBC 0.09 (0-0.12) K/uL Nucleated RBC % (auto) 0.5 % Neutrophils % (Manual) 31 % Lymphocytes % (Manual) 17 % Monocytes % (Manual) 4 % Basophils % (Manual) 1 % Metamyelocytes % (Man) 3 % Other Cells % 44 % Neutrophils # (Manual) 5.75 (1.40-6.50) K/uL Total Absolute Neuts 5.75 (1.4-6.5) K/uL Lymphocytes # (Manual) 3.16 (1.2-3.4) K/uL Total Abs Lymphocytes 3.16 (1.2-3.4) K/uL Monocytes # (Manual) 0.74 H (0.11-0.59) K/uL Basophils # (Manual) 0.19 (0-0.2) K/uL Metamyelocytes # (Man) 0.56 H (0-0) K/uL Other Cells # 8.17 H (0-0) K/uL Ovalocytes 1+ Echinocytes 2+ PT (9.0-12.0) Seconds INR (0.9-1.1) APTT (21.0-31.0) Seconds PTT Ratio Sodium (136-145) mmol/L Potassium (3.5-5.1) mmol/L Chloride (98-107) mmol/L Carbon Dioxide (21-32) mmol/L Anion Gap (3-11) BUN (6-23) mg/dl Creatinine (0.6-1.2) mg/dl Est Cr Clr Drug Dosing ml/min Est GFR ( Amer) ml/min Est GFR (Non-Af Amer) ml/min BUN/Creatinine Ratio (10-20) Glucose (70-99(Fasting)) mg/dl Lactate 1.1 (0.4-2.0) mmol/L Uric Acid (2.6-7.2) mg/dl Calcium (8.6-10.3) mg/dl Phosphorus (2.5-4.9) mg/dl Total Bilirubin (0.2-1.0) mg/dl AST (13-39) U/L ALT (7-52) U/L Alkaline Phosphatase (34-104) U/L Troponin I High Sens (0-14) pg/ml C-Reactive Protein (0-0.5) mg/dl Total Protein (6.0-8.3) gm/dl Albumin (3.4-5.0) gm/dl Globulin (2.5-4.0) gm/dl Albumin/Globulin Ratio (0.9-2) Lipase (11-82) U/L Procalcitonin (0-0.5) ng/ml Urine Color Urine Appearance (Clear) Urine pH (4.5-7.5) Ur Specific Vanlue (1.000-1.030) Urine Protein (Negative) Urine Glucose (UA) (Negative) Urine Ketones (Negative) Urine Blood (Negative) Urine Nitrite (Negative) Urine Bilirubin (Negative) Urine Urobilinogen (Negative) Ur Leukocyte Esterase (Negative) Urine WBC (Auto) (0-5) /hpf Urine RBC (Auto) (0-4) /hpf U Hyaline Cast (Auto) (0-5) /lpf U Epithel Cells (Auto) (0-5) /lpf Urine Bacteria (Auto) (Negative) Amorphous Sediment (None Prsent) Urine Yeast SARS-CoV-2, RNA, NAAT NEGATIVE (NEGATIVE) 02/03/23 02/03/23 02/03/23 Range/Units 18:39 18:39 18:39 WBC (4.8-10.8) K/ul RBC (4.20-5.40) M/uL Hgb (12.0-16.0) g/dl Hct (37.0-47.0) % MCV (80.0-100.0) fL MCH (25.0-34.0) pg MCHC (32.0-36.0) g/dL RDW Std Deviation (36.4-46.3) fL RDW Coeff of Desire (11.5-14.5) % Plt Count (130-400) K/uL MPV (9.4-12.4) fL Absolute Nucleated RBC (0-0.12) K/uL Nucleated RBC % (auto) % Neutrophils % (Manual) % Lymphocytes % (Manual) % Monocytes % (Manual) % Basophils % (Manual) % Metamyelocytes % (Man) % Other Cells % % Neutrophils # (Manual) (1.40-6.50) K/uL Total Absolute Neuts (1.4-6.5) K/uL Lymphocytes # (Manual) (1.2-3.4) K/uL Total Abs Lymphocytes (1.2-3.4) K/uL Monocytes # (Manual) (0.11-0.59) K/uL Basophils # (Manual) (0-0.2) K/uL Metamyelocytes # (Man) (0-0) K/uL Other Cells # (0-0) K/uL Ovalocytes Echinocytes PT 12.0 (9.0-12.0) Seconds INR 1.1 (0.9-1.1) APTT 29.0 (21.0-31.0) Seconds PTT Ratio 1.0 Sodium 135 L (136-145) mmol/L Potassium 4.7 (3.5-5.1) mmol/L Chloride 102 (98-107) mmol/L Carbon Dioxide 17 L (21-32) mmol/L Anion Gap 16 H (3-11) BUN 15 (6-23) mg/dl Creatinine 0.79 (0.6-1.2) mg/dl Est Cr Clr Drug Dosing 64.7 ml/min Est GFR ( Amer) 89.8 ml/min Est GFR (Non-Af Amer) 77.5 ml/min BUN/Creatinine Ratio 19.0 (10-20) Glucose 103 H (70-99(Fasting)) mg/dl Lactate (0.4-2.0) mmol/L Uric Acid 17.2 H (2.6-7.2) mg/dl Calcium 9.0 (8.6-10.3) mg/dl Phosphorus 3.3 (2.5-4.9) mg/dl Total Bilirubin 1.0 (0.2-1.0) mg/dl AST 39 (13-39) U/L ALT 7 (7-52) U/L Alkaline Phosphatase 55 (34-104) U/L Troponin I High Sens 8.2 (0-14) pg/ml C-Reactive Protein 6.58 H (0-0.5) mg/dl Total Protein 5.3 L (6.0-8.3) gm/dl Albumin 3.8 (3.4-5.0) gm/dl Globulin 1.5 L (2.5-4.0) gm/dl Albumin/Globulin Ratio 2.5 H (0.9-2) Lipase 8 L (11-82) U/L Procalcitonin 0.28 (0-0.5) ng/ml Urine Color Urine Appearance (Clear) Urine pH (4.5-7.5) Ur Specific Vanlue (1.000-1.030) Urine Protein (Negative) Urine Glucose (UA) (Negative) Urine Ketones (Negative) Urine Blood (Negative) Urine Nitrite (Negative) Urine Bilirubin (Negative) Urine Urobilinogen (Negative) Ur Leukocyte Esterase (Negative) Urine WBC (Auto) (0-5) /hpf Urine RBC (Auto) (0-4) /hpf U Hyaline Cast (Auto) (0-5) /lpf U Epithel Cells (Auto) (0-5) /lpf Urine Bacteria (Auto) (Negative) Amorphous Sediment (None Prsent) Urine Yeast SARS-CoV-2, RNA, NAAT (NEGATIVE) 02/03/23 Range/Units 20:37 WBC (4.8-10.8) K/ul RBC (4.20-5.40) M/uL Hgb (12.0-16.0) g/dl Hct (37.0-47.0) % MCV (80.0-100.0) fL MCH (25.0-34.0) pg MCHC (32.0-36.0) g/dL RDW Std Deviation (36.4-46.3) fL RDW Coeff of Desire (11.5-14.5) % Plt Count (130-400) K/uL MPV (9.4-12.4) fL Absolute Nucleated RBC (0-0.12) K/uL Nucleated RBC % (auto) % Neutrophils % (Manual) % Lymphocytes % (Manual) % Monocytes % (Manual) % Basophils % (Manual) % Metamyelocytes % (Man) % Other Cells % % Neutrophils # (Manual) (1.40-6.50) K/uL Total Absolute Neuts (1.4-6.5) K/uL Lymphocytes # (Manual) (1.2-3.4) K/uL Total Abs Lymphocytes (1.2-3.4) K/uL Monocytes # (Manual) (0.11-0.59) K/uL Basophils # (Manual) (0-0.2) K/uL Metamyelocytes # (Man) (0-0) K/uL Other Cells # (0-0) K/uL Ovalocytes Echinocytes PT (9.0-12.0) Seconds INR (0.9-1.1) APTT (21.0-31.0) Seconds PTT Ratio Sodium (136-145) mmol/L Potassium (3.5-5.1) mmol/L Chloride (98-107) mmol/L Carbon Dioxide (21-32) mmol/L Anion Gap (3-11) BUN (6-23) mg/dl Creatinine (0.6-1.2) mg/dl Est Cr Clr Drug Dosing ml/min Est GFR ( Amer) ml/min Est GFR (Non-Af Amer) ml/min BUN/Creatinine Ratio (10-20) Glucose (70-99(Fasting)) mg/dl Lactate (0.4-2.0) mmol/L Uric Acid (2.6-7.2) mg/dl Calcium (8.6-10.3) mg/dl Phosphorus (2.5-4.9) mg/dl Total Bilirubin (0.2-1.0) mg/dl AST (13-39) U/L ALT (7-52) U/L Alkaline Phosphatase (34-104) U/L Troponin I High Sens (0-14) pg/ml C-Reactive Protein (0-0.5) mg/dl Total Protein (6.0-8.3) gm/dl Albumin (3.4-5.0) gm/dl Globulin (2.5-4.0) gm/dl Albumin/Globulin Ratio (0.9-2) Lipase (11-82) U/L Procalcitonin (0-0.5) ng/ml Urine Color Yellow Urine Appearance Cloudy A (Clear) Urine pH 5.5 (4.5-7.5) Ur Specific Vanlue > 1.045 H (1.000-1.030) Urine Protein 2+ H (Negative) Urine Glucose (UA) Negative (Negative) Urine Ketones 2+ H (Negative) Urine Blood Negative (Negative) Urine Nitrite Negative (Negative) Urine Bilirubin Negative (Negative) Urine Urobilinogen Negative (Negative) Ur Leukocyte Esterase Negative (Negative) Urine WBC (Auto) 1-5 (0-5) /hpf Urine RBC (Auto) 0-4 (0-4) /hpf U Hyaline Cast (Auto) 1-5 (0-5) /lpf U Epithel Cells (Auto) 10-20 H (0-5) /lpf Urine Bacteria (Auto) Negative (Negative) Amorphous Sediment Present A (None Prsent) Urine Yeast Not Reportable SARS-CoV-2, RNA, NAAT (NEGATIVE) Administered Medications Discontinued Medications Allopurinol (Allopurinol 300 Mg Tab) 300 mg PO ONE ONE Stop: 02/03/23 18:28 Last Admin: 02/03/23 19:09 Dose: 300 mg Documented By: EMILIANO Sodium Chloride (Nss 1000ml) 1,000 mls @ 999 mls/hr IV .Q1H1M STA Stop: 02/03/23 19:20 Last Infusion: 02/03/23 22:57 Dose: 0 mls/hr Documented By: Admin: 02/03/23 18:55 Dose: 999 mls/hr Documented By: EMILIANO Rasburicase 6 mg/ Sodium (Chloride) 50 mls @ 100 mls/hr IV NOW ONE Stop: 02/03/23 19:14 Last Infusion: 02/03/23 22:56 Dose: 0 mls/hr Documented By: EMILIANO Co-signed By: LEXX Admin: 02/03/23 18:54 Dose: 100 mls/hr Documented By: EMILIANO Co-signed By: ARCHANA Sodium Chloride (Nss 1000ml) 1,000 mls @ 999 mls/hr IV .Q1H1M ONE Stop: 02/03/23 20:58 Last Infusion: 02/03/23 22:57 Dose: 0 mls/hr Documented By: Admin: 02/03/23 20:33 Dose: 999 mls/hr Documented By: EMILIANO Cefepime HCl (Maxipime) 2,000 mg in 20 mls @ 5 mls/min IV NOW STA; Protocol Stop: 02/03/23 20:01 Last Admin: 02/03/23 20:35 Dose: 5 mls/min Documented By: EMILIANO Imaging Data Attestation: I personally reviewed and interpreted this imaging study as follows: My Impression: 1 view chest x-ray was obtained in the emergency department. My interpretation is no infiltrate or free air, elevation of the left hemidiaphragm, this was compared to a chest x-ray from December 27, 2022. No changes were noted. Final report pending. Radiologist's Impression: Chest X-Ray 02/03/23 18:21 XR chest 1V portable CLINICAL HISTORY: weakness TECHNIQUE: Single frontal radiograph of the chest was obtained. Comparison: Comparison is made to chest radiograph 12/27/2022 FINDINGS: No lines and tubes are seen. The cardiomediastinal silhouette is normal. The lungs are clear. No evidence of pleural effusion or pneumothorax. IMPRESSION: No acute chest disease. ACT 112: Negative or not required by law. Electronically signed by: Cornel Dubose M.D. 02/03/2023 6:54 PM Discharge Plan Visit Data Chief Complaint: Referred by Doctor Stated Complaint: REF BY DOC,TRANSPORT ED Provider: Naif Alonzo Discharge Problem: B-cell lymphoma, Thrombocytopenia, Tumor lysis syndrome Patient Disposition: Transfer Acute Care Hospital Forms Stand Alone Forms: My [facility] Prescriptions Prescriptions: No Action No Known Home Medications Referrals Referrals: Naif Olivares MD [Primary Care Provider] - B-cell lymphoma Qualifiers: B-cell lymphoma type: unspecified B-cell Lymphoma site: unspecified region Qualified Code(s): C85.10 - Unspecified B-cell lymphoma, unspecified site
[2023-02-03] MEDS ORDERED: SODIUM CHLORIDE 0.9% 1000ML 1,000 ML IV STA (18:20)
[2023-02-03] MEDS ORDERED: RASBURICASE IV ONE (18:22)
[2023-02-03] MEDS ORDERED: allopurinoL 300 MG TAB PO ONE (18:27)
[2023-02-03] MEDS ORDERED: RASBURICASE 6 MG in SODIUM CHLORIDE 0.9% 50 ML IV ONE (18:45)
--- NOTE | 2023-02-03 18:56 | XRay Report ---
XR chest 1V portable CLINICAL HISTORY: weakness TECHNIQUE: Single frontal radiograph of the chest was obtained. Comparison: Comparison is made to chest radiograph 12/27/2022 FINDINGS: No lines and tubes are seen. The cardiomediastinal silhouette is normal. The lungs are clear. No evid ence of pleural effusion or pneumothorax. IMPRESSION: No acute chest disease. ACT 112: Negative or not required by law. Electronically signed by: Cornel Dubose M.D. 02/03/2023 6:54 PM
[2023-02-03 19:23] LABS: Hematocrit (blood only) 29.5 % (37.0-47.0); Hemoglobin 9.6 g/dl (12.0-16.0); Mean Corpuscular Hemoglobin 27.8 pg (25.0-34.0); Mean Corpuscular Hgb Conc 32.5 g/dL (32.0-36.0); Mean Corpuscular Volume 85.5 fL (80.0-100.0); RDW Coefficient of Variation 18.4 % (11.5-14.5); Red Blood Count 3.45 M/uL (4.20-5.40); White Blood Count 18.56 K/ul (4.8-10.8)
[2023-02-03 19:30] LABS: Albumin Globulin Ratio 2.5 (0.9-2); Albumin Level 3.8 gm/dl (3.4-5.0); C Reactive Protein 6.58 mg/dl (0-0.5); Creatinine Clr Calc Pharmacy 64.7 ml/min; Est GFR (African American) 89.8 ml/min; Est GFR (Non-African American) 77.5 ml/min; Globulin 1.5 gm/dl (2.5-4.0); Phosphorus 3.3 mg/dl (2.5-4.9); Potassium 4.7 mmol/L (3.5-5.1); Total Protein 5.3 gm/dl (6.0-8.3); Uric Acid 17.2 mg/dl (2.6-7.2)
[2023-02-03 19:36] LABS: Troponin I High Sensitivity 8.2 pg/ml (0-14)
[2023-02-03 19:44] LABS: Mean Platelet Volume 10.9 fL (9.4-12.4); Nucleated RBC # (auto) 0.09 K/uL (0-0.12); Nucleated RBC % (auto) 0.5 %; Platelet Count 82 K/uL (130-400)
[2023-02-03] MEDS ORDERED: SODIUM CHLORIDE 0.9% 1000ML 1,000 ML IV ONE (19:58)
[2023-02-03] MEDS ORDERED: CEFEPIME 2,000 MG/20 ML VIAL IV STA (19:58)
[2023-02-03 19:59] LABS: INR 1.1 (0.9-1.1)
[2023-02-03 20:18] LABS: Echinocytes 2+; Ovalocytes 1+
[2023-02-03 20:20] LABS: ALC (manual) 3.16 K/uL (1.2-3.4); ANC (manual) 5.75 K/uL (1.4-6.5); Basophils # (manual) 0.19 K/uL (0-0.2); Basophils % (manual) 1 %; Lymphocytes # (manual) 3.16 K/uL (1.2-3.4); Lymphocytes % (manual) 17 %; Metamyelocytes # (manual) 0.56 K/uL (0-0); Metamyelocytes % (manual) 3 %; Monocytes # (manual) 0.74 K/uL (0.11-0.59); Monocytes % (manual) 4 %; Neutrophils # (manual) 5.75 K/uL (1.40-6.50); Neutrophils % (manual) 31 %; Other Cell Type % 44 %; Other Cells # (manual) 8.17 K/uL (0-0)
[2023-02-03 21:54] LABS: Appearance Urine Cloudy (Clear); Bacteria Urine Automated Negative (Negative); Bilirubin Urine Negative (Negative); Blood Urine Negative (Negative); Color Urine Yellow; Glucose Urine UA Negative (Negative); Ketones Urine 2+ (Negative); Leukocyte Esterase Urine Negative (Negative); Nitrite Urine Negative (Negative); Protein Urine 2+ (Negative); RBC Urine Automated 0-4 /hpf (0-4); Specific Gravity Urine > 1.045 (1.000-1.030); Urobilinogen Urine Negative (Negative); pH Urine 5.5 (4.5-7.5)
[2023-02-03 22:16] LABS: Amorphous Sediment Urine Present (None Prsent)
--- NOTE | 2023-02-04 00:24 | History & Physical Report ---
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 Advised to present to ED by her oncologist due to abnormal labs. #Tumor lysis syndrome #H/o B-cell lymphoma #Enlarged spleen -presented with 4 days weakness, fatigue, enlarging spleen. Her oncologist obtained labs which appears early stages tumor lysis syndrome, likely spontaneous since not actively undergoing chemo. Initially followed with Dr. Frost and now primarily with [facility]. -WBC 18. Uric acid 17. LDH 1500. Fortunately K, phos, calcium wnl. Monitor labs q4h. -2L NSS given in ED. Cont. NSS @ 100. -cefepime x1 in ED, will continue. -on ppx allopurinol daily at home. Additional dose given in ED. -ED spoke with Dr. Frost who advised administration rasburicase dose and need for urgent inpatient chemotherapy at [facility]. Will defer continuance of allopurinol and/or rasburicase to oncology who is consulted. [facility] accepted transfer, awaiting bed. DVT ppx: SCDs FEN/GI: regular Code Status: full Dispo: pcu; pending transfer to [facility]. Paperwork completed in ED. 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 Advised to present to ED by her oncologist due to abnormal labs. 4 days ago noticed her spleen enlarging and had mild abdominal pain. She has also been experiencing fatigue and generalized weakness and some shortness of breath on exertion. This prompted her to contact her oncologist who obtained labs which were abnormal. Denies fever, headache, chest pain, constipation, diarrhea, dysuria, nausea, vomiting. Patient initially seen by Dr. Frost for her B-cell lymphoma and now is primarily being seen by [facility]. They recommended she needs urgent inpatient chemotherapy and will be transferred to [facility] awaiting bed. Allergies Allergy/AdvReac Type Severity Reaction Status Date / Time Sulfa (Sulfonamide Allergy Intermediate Rash Verified 02/03/23 19:08 Antibiotics) Home Medications Medication Instructions Recorded Confirmed Type No Known Home Medications 02/03/23 02/03/23 History 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 Thrombocytopenia Surgical History History of colonoscopy History of tubal ligation S/P lymph node biopsy (05/18/22) Cervical Lymph Node Biopsy(Right) - Nick Sanchez DO Family History Other Family history non-contributory No family history of adverse response to anesthesia Social History Smoking Status: Never smoker Second Hand Exposure: Yes (hx); Do You Dip or Chew Tobacco: No; Hx Alcohol Use: No Hx Substance Use: No Preferred Language: Sammarinese Communication Ability: Effective Conference Services Director Required: No Beliefs That Will Affect Care: None marital status: Current Living Situation: Spouse Feels Safe at Home: Yes Safety Concerns: Feels Safe At This Time Assistive Devices: None Review of Systems Review of Systems: All systems reviewed & are unremarkable except as noted in HPI & below Physical Exam Physical Exam: Constitutional: in no acute distress, pleasant, intact memory. AOx3. Vitals as above. HEENT: No scleral injection or discharge.Dry mucous membranes. Clear oropharynx. Neck: Supple without lymphadenopathy or thyromegaly. Trachea midline. Lungs: CTAB with good effort. No wheezes/rales/rhonchi. Cardiac: RRR. No murmurs. No extremity edema. 2+ distal peripheral pulses. Abdomen: +splenomegaly with large protrusion. Mild tenderness left abdomen without guarding. MSK: No cyanosis or clubbing. Extremities motor strength 5/5. Skin: No rashes, warm, dry. Neurologic: no focal deficits Results & Data Results & Data Vital Signs (Past 12 Hours) Vital Signs Temp Pulse Resp BP Pulse Ox O2 Del Method 02/03/23 23:00 116 H 22 113/57 L 93 Room Air 02/03/23 22:45 37.4 C 117 H 24 110/59 L 95 02/03/23 22:30 113 H 24 94 02/03/23 22:15 120 H 24 95 02/03/23 22:00 119 H 24 96 02/03/23 21:45 114 H 24 95 02/03/23 21:30 114 H 24 95 02/03/23 21:15 112 H 24 95 02/03/23 21:00 113 H 24 96 02/03/23 20:45 37.2 C 114 H 24 112/70 95 02/03/23 20:39 121 H 24 02/03/23 19:45 120 H 24 94 02/03/23 19:30 118 H 24 95 02/03/23 19:15 126 H 22 94 02/03/23 19:00 94 02/03/23 18:45 136 H 22 94 02/03/23 18:30 137 H 20 94 02/03/23 18:23 135 H 22 93 02/03/23 19:11 126 H 18 94 Room Air 02/03/23 19:11 37.7 C H 16 94 Room Air 02/03/23 18:27 135 H 02/03/23 18:04 36.3 C L 136 H 16 127/80 95 Laboratory Results Laboratory Results WBC 18.56 K/ul (4.8-10.8) H 02/03/23 18:39 RBC 3.45 M/uL (4.20-5.40) L 02/03/23 18:39 Hgb 9.6 g/dl (12.0-16.0) L 02/03/23 18:39 Hct 29.5 % (37.0-47.0) L 02/03/23 18:39 MCV 85.5 fL (80.0-100.0) 02/03/23 18:39 MCH 27.8 pg (25.0-34.0) 02/03/23 18:39 MCHC 32.5 g/dL (32.0-36.0) 02/03/23 18:39 RDW Std Deviation 55.0 fL (36.4-46.3) H 02/03/23 18:39 RDW Coeff of Desire 18.4 % (11.5-14.5) H 02/03/23 18:39 Plt Count 82 K/uL (130-400) L 02/03/23 18:39 MPV 10.9 fL (9.4-12.4) 02/03/23 18:39 Absolute Nucleated RBC 0.09 K/uL (0-0.12) 02/03/23 18:39 Nucleated RBC % (auto) 0.5 % 02/03/23 18:39 Neutrophils % (Manual) 31 % 02/03/23 18:39 Lymphocytes % (Manual) 17 % 02/03/23 18:39 Monocytes % (Manual) 4 % 02/03/23 18:39 Basophils % (Manual) 1 % 02/03/23 18:39 Metamyelocytes % (Man) 3 % 02/03/23 18:39 Other Cells % 44 % 02/03/23 18:39 Neutrophils # (Manual) 5.75 K/uL (1.40-6.50) 02/03/23 18:39 Total Absolute Neuts 5.75 K/uL (1.4-6.5) 02/03/23 18:39 Lymphocytes # (Manual) 3.16 K/uL (1.2-3.4) 02/03/23 18:39 Total Abs Lymphocytes 3.16 K/uL (1.2-3.4) 02/03/23 18:39 Monocytes # (Manual) 0.74 K/uL (0.11-0.59) H 02/03/23 18:39 Basophils # (Manual) 0.19 K/uL (0-0.2) 02/03/23 18:39 Metamyelocytes # (Man) 0.56 K/uL (0-0) H 02/03/23 18:39 Other Cells # 8.17 K/uL (0-0) H 02/03/23 18:39 Ovalocytes 1+ 02/03/23 18:39 Echinocytes 2+ 02/03/23 18:39 PT 12.0 Seconds (9.0-12.0) 02/03/23 18:39 INR 1.1 (0.9-1.1) 02/03/23 18:39 APTT 29.0 Seconds (21.0-31.0) 02/03/23 18:39 PTT Ratio 1.0 02/03/23 18:39 Sodium 135 mmol/L (136-145) L 02/03/23 18:39 Potassium 4.7 mmol/L (3.5-5.1) 02/03/23 18:39 Chloride 102 mmol/L (98-107) 02/03/23 18:39 Carbon Dioxide 17 mmol/L (21-32) L 02/03/23 18:39 Anion Gap 16 (3-11) H 02/03/23 18:39 BUN 15 mg/dl (6-23) 02/03/23 18:39 Creatinine 0.79 mg/dl (0.6-1.2) 02/03/23 18:39 Est Cr Clr Drug Dosing 64.7 ml/min 02/03/23 18:39 Est GFR ( Amer) 89.8 ml/min 02/03/23 18:39 Est GFR (Non-Af Amer) 77.5 ml/min 02/03/23 18:39 BUN/Creatinine Ratio 19.0 (10-20) 02/03/23 18:39 Glucose 103 mg/dl (70-99(Fasting)) H 02/03/23 18:39 Lactate 1.1 mmol/L (0.4-2.0) 02/03/23 17:00 Uric Acid 17.2 mg/dl (2.6-7.2) H 02/03/23 18:39 Calcium 9.0 mg/dl (8.6-10.3) 02/03/23 18:39 Phosphorus 3.3 mg/dl (2.5-4.9) 02/03/23 18:39 Total Bilirubin 1.0 mg/dl (0.2-1.0) 02/03/23 18:39 AST 39 U/L (13-39) 02/03/23 18:39 ALT 7 U/L (7-52) 02/03/23 18:39 Alkaline Phosphatase 55 U/L (34-104) 02/03/23 18:39 Troponin I High Sens 8.2 pg/ml (0-14) 02/03/23 18:39 C-Reactive Protein 6.58 mg/dl (0-0.5) H 02/03/23 18:39 Total Protein 5.3 gm/dl (6.0-8.3) L 02/03/23 18:39 Albumin 3.8 gm/dl (3.4-5.0) 02/03/23 18:39 Globulin 1.5 gm/dl (2.5-4.0) L 02/03/23 18:39 Albumin/Globulin Ratio 2.5 (0.9-2) H 02/03/23 18:39 Lipase 8 U/L (11-82) L 02/03/23 18:39 Procalcitonin 0.28 ng/ml (0-0.5) 02/03/23 18:39 Urine Color Yellow 02/03/23 20:37 Urine Appearance Cloudy (Clear) A 02/03/23 20:37 Urine pH 5.5 (4.5-7.5) 02/03/23 20:37 Ur Specific [place] > 1.045 (1.000-1.030) H 02/03/23 20:37 Urine Protein 2+ (Negative) H 02/03/23 20:37 Urine Glucose (UA) Negative (Negative) 02/03/23 20:37 Urine Ketones 2+ (Negative) H 02/03/23 20:37 Urine Blood Negative (Negative) 02/03/23 20:37 Urine Nitrite Negative (Negative) 02/03/23 20:37 Urine Bilirubin Negative (Negative) 02/03/23 20:37 Urine Urobilinogen Negative (Negative) 02/03/23 20:37 Ur Leukocyte Esterase Negative (Negative) 02/03/23 20:37 Urine WBC (Auto) 1-5 /hpf (0-5) 02/03/23 20:37 Urine RBC (Auto) 0-4 /hpf (0-4) 02/03/23 20:37 U Hyaline Cast (Auto) 1-5 /lpf (0-5) 02/03/23 20:37 U Epithel Cells (Auto) 10-20 /lpf (0-5) H 02/03/23 20:37 Urine Bacteria (Auto) Negative (Negative) 02/03/23 20:37 Amorphous Sediment Present (None Prsent) A 02/03/23 20:37 Urine Yeast Not Reportable 02/03/23 20:37 SARS-CoV-2, RNA, NAAT NEGATIVE (NEGATIVE) 02/03/23 18:37 Impressions Chest X-Ray 02/03/23 18:21 XR chest 1V portable CLINICAL HISTORY: weakness TECHNIQUE: Single frontal radiograph of the chest was obtained. Comparison: Comparison is made to chest radiograph 12/27/2022 FINDINGS: No lines and tubes are seen. The cardiomediastinal silhouette is normal. The lungs are clear. No evidence of pleural effusion or pneumothorax. IMPRESSION: No acute chest disease. ACT 112: Negative or not required by law. Electronically signed by: Cornel Dubose M.D. 02/03/2023 6:54 PM Supervising Physician Co-Signing Physician Notes Attending addendum: I have physically seen this patient, have supervised the medical residents activities, and agree with the H&P unless as otherwise noted. Assessment and Plan: Tumor lysis syndrome- WBC 20.21, uric acid 17.2 anion gap 16 Patient given rasburicase 6 mg IV by hematology oncology Dr. Frost Has received 2 L normal saline from the ED, will continue NSS at 100 mL/h Continue cefepime 2 g IV every 12 hours, having received the first dose in the ED Follow urine culture sensitivity, blood culture and sensitivity Continue allopurinol as noted Patient has been accepted to [facility] for transfer, waiting for a bed for transfer Follow serial BMP, phosphorus and uric acid Remaining orders and notations as noted Remaining orders and notations as noted Resident Activity Tracking Resident Involvement: Resident Care Provided Care Provided: Adult Hospital Medicine
[2023-02-04] MEDS ORDERED: ACETAMINOPHEN 325 MG TAB PO PRN (02:30)
[2023-02-04] MEDS ORDERED: ONDANSETRON 4 MG OD TAB PO PRN (02:30)
[2023-02-04] MEDS: SODIUM CHLORIDE 0.9% 1000ML 1,000 ML IV SCH ×2 (03:02→12:59)
[2023-02-04 03:26] LABS: BUN Creatinine Ratio 19.7 (10-20); Calcium 7.7 mg/dl (8.6-10.3); Creatinine Clr Calc Pharmacy 69.2 ml/min; Est GFR (African American) 102.2 ml/min; Est GFR (Non-African American) 88.1 ml/min; Potassium 4.2 mmol/L (3.5-5.1); Uric Acid 7.9 mg/dl (2.6-7.2)
[2023-02-04 03:29] LABS: Hematocrit (blood only) 26.1 % (37.0-47.0); Hemoglobin 8.4 g/dl (12.0-16.0); Mean Corpuscular Hemoglobin 27.9 pg (25.0-34.0); Mean Corpuscular Hgb Conc 32.2 g/dL (32.0-36.0); Mean Corpuscular Volume 86.7 fL (80.0-100.0); Mean Platelet Volume 11.1 fL (9.4-12.4); Nucleated RBC % (auto) 0.6 %; Platelet Count 72 K/uL (130-400); RDW Coefficient of Variation 18.4 % (11.5-14.5); RDW Standard Deviation 55.8 fL (36.4-46.3); Red Blood Count 3.01 M/uL (4.20-5.40); White Blood Count 17.79 K/ul (4.8-10.8)
[2023-02-04 03:55] LABS: ALC (manual) 5.69 K/uL (1.2-3.4); ANC (manual) 5.87 K/uL (1.4-6.5); Acanthocytes 1+; Basophils # (manual) 0.36 K/uL (0-0.2); Basophils % (manual) 2 %; Echinocytes 1+; Lymphocytes # (manual) 5.69 K/uL (1.2-3.4); Lymphocytes % (manual) 32 %; Metamyelocytes # (manual) 0.18 K/uL (0-0); Metamyelocytes % (manual) 1 %; Monocytes # (manual) 0.53 K/uL (0.11-0.59); Monocytes % (manual) 3 %; Neutrophils # (manual) 5.87 K/uL (1.40-6.50); Neutrophils % (manual) 33 %; Other Cell Type % 29 %; Other Cells # (manual) 5.16 K/uL (0-0); Ovalocytes 1+; Tear Drop Cells 1+
[2023-02-04] MEDS: CEFEPIME 2,000 MG in SYRINGE 0 ML IV SCH ×3 (04:22→20:00)
[2023-02-04 07:53] LABS: BUN Creatinine Ratio 19.4 (10-20); Calcium 7.5 mg/dl (8.6-10.3); Creatinine Clr Calc Pharmacy 73.3 ml/min; Est GFR (African American) 105.4 ml/min; Potassium 3.8 mmol/L (3.5-5.1); Uric Acid 6.3 mg/dl (2.6-7.2)
[2023-02-04 08:05] LABS: Hematocrit (blood only) 24.6 % (37.0-47.0); Hemoglobin 7.9 g/dl (12.0-16.0); Mean Corpuscular Hemoglobin 28.1 pg (25.0-34.0); Mean Corpuscular Hgb Conc 32.1 g/dL (32.0-36.0); Mean Corpuscular Volume 87.5 fL (80.0-100.0); Mean Platelet Volume 11.6 fL (9.4-12.4); Nucleated RBC # (auto) 0.06 K/uL (0-0.12); Nucleated RBC % (auto) 0.4 %; Platelet Count 64 K/uL (130-400); RDW Coefficient of Variation 18.4 % (11.5-14.5); RDW Standard Deviation 57.1 fL (36.4-46.3); Red Blood Count 2.81 M/uL (4.20-5.40); White Blood Count 15.06 K/ul (4.8-10.8)
[2023-02-04 08:06] LABS: Echinocytes 1+; Ovalocytes 1+
[2023-02-04 08:12] LABS: ALC (manual) 4.97 K/uL (1.2-3.4); ANC (manual) 5.72 K/uL (1.4-6.5); Basophils # (manual) 0.15 K/uL (0-0.2); Basophils % (manual) 1 %; Lymphocytes # (manual) 4.97 K/uL (1.2-3.4); Lymphocytes % (manual) 33 %; Metamyelocytes # (manual) 0.15 K/uL (0-0); Metamyelocytes % (manual) 1 %; Monocytes # (manual) 0.45 K/uL (0.11-0.59); Monocytes % (manual) 3 %; Myelocytes % (manual) 2 %; Neutrophils # (manual) 5.72 K/uL (1.40-6.50); Neutrophils % (manual) 38 %; Other Cell Type % 24 %; Other Cells # (manual) 3.61 K/uL (0-0)
[2023-02-04 11:06] LABS: BUN Creatinine Ratio 19.7 (10-20); Calcium 7.5 mg/dl (8.6-10.3); Creatinine Clr Calc Pharmacy 74.4 ml/min; Est GFR (African American) 105.9 ml/min; Est GFR (Non-African American) 91.4 ml/min; Uric Acid 5.5 mg/dl (2.6-7.2)
[2023-02-04] MEDS ORDERED: SODIUM CHLORIDE 0.9% 250 ML IV PRN (11:55)
[2023-02-04 12:06] LABS: Hematocrit (blood only) 26.3 % (37.0-47.0); Hemoglobin 8.3 g/dl (12.0-16.0); Mean Corpuscular Hemoglobin 27.8 pg (25.0-34.0); Mean Corpuscular Hgb Conc 31.6 g/dL (32.0-36.0); Mean Platelet Volume 12.1 fL (9.4-12.4); Nucleated RBC # (auto) 0.07 K/uL (0-0.12); Nucleated RBC % (auto) 0.4 %; Platelet Count 65 K/uL (130-400); RDW Coefficient of Variation 18.6 % (11.5-14.5); RDW Standard Deviation 57.1 fL (36.4-46.3); Red Blood Count 2.99 M/uL (4.20-5.40); White Blood Count 17.56 K/ul (4.8-10.8)
--- NOTE | 2023-02-04 12:08 | Oncology Consultation ---
Date of Consultation February 03, 2023 Assessment & Plan (1) Diffuse large B-cell lymphoma: (2) Thrombocytopenia: (3) Tumor lysis syndrome: (4) Anemia: Plan -Admitted with tumor lysis syndrome in the setting of relapsed DLBCL. Uric acid level was 17.6, low calcium but normal renal function, potassium, phos. -Accepted by [facility] as she will need to start aggressive inpatient chemotherapy but is currently awaiting bed. Repeat uric acid level after rasburicase 6mg IV x 1 dose improved from 17.6 to 5.5 (unsure if this was collected on ice). Recommend rechecking uric acid on ice as rasburicase can cause falsely low uric acid level if not collected on ice. -Anemia likely due to bone marrow involvement by lymphoma and hemodilution from IV fluids. No evidence of hemolysis with normal Bilirubin. Elevated LDH likely from lymphoma. Will obtain peripheral smear review by pathology to evaluate for schistocytes/evidence of hemolysis. Also reticulocyte count, haptoglobin, iron studies, B12, folate level -Continue allopurinol 300mg po daily -Repeat CBC, TLS labs 2x/day. Transfuse for hemoglobin <7g/dl or higher if symptomatic Thanks for this consult. Please call if you have any questions History of Present Illness Reason for Consultation: Relapsed lymphoma,Tumor lysis syndrome History of Present Illness 67-year-old female with stage IV diffuse large B-cell lymphoma s/p 6 cycles of R-CHOP with partial response currently being evaluated for CAR-T cell therapy. Received a message from [facility] nurse yesterday stating that patient had called them complaining of feeling fatigued, lightheaded and SOB. Pt also reported that her stomach is enlarged. As a result of this, recommended obtaining labs including CBC, CMP, LDH and uric acid. Also recommended CT CAP. CBC revealed leukocytosis with white cell count of 20,000, hemoglobin of 11, hematocrit of 34.9 and platelet count of 89,000. LDH was elevated at 1554 and uric acid was elevated at 17.Creatinine was normal at 0.8. Per discussion with pathology, peripheral smear revealed about 49% circulating diffuse large B-cell lymphoma cells in peripheral blood. CT abdomen and pelvis revealed significant progression of intra-abdominal lymphadenopathy, marked splenomegaly of 29.2. Based on this, recommnded that she would benefit from transfer to higher level of care to receive intensive chemotherapy. I discussed her case with Dr.Allison Bazan (her internal control analyst at [facility]) who recommended ED evaluation at [facility] for management of TLS with plan to transfer to [facility] as soon as possible. Patient was accepted for transfer to [facility] but is currently awaiting a bed. She received rasburicase 6mg IV x 1 dose yesterday and was placed on IV fluids p. Allergies Allergy/AdvReac Type Severity Reaction Status Date / Time Sulfa (Sulfonamide Allergy Intermediate Rash Verified 02/03/23 19:08 Antibiotics) Home Medications Medication Instructions Recorded Confirmed Type No Known Home Medications 02/03/23 02/03/23 History Patient History Medical History Autoimmune hemolytic anemia B-cell lymphoma dx'd 05/2022 - started chemo Moss syndrome Thrombocytopenia Surgical History History of colonoscopy History of tubal ligation S/P lymph node biopsy (05/18/22) Cervical Lymph Node Biopsy(Right) - Nick Sanchez DO Family History Other Family history non-contributory No family history of adverse response to anesthesia Social History Smoking Status: Never smoker Second Hand Exposure: Yes (hx); Do You Dip or Chew Tobacco: No; Hx Alcohol Use: No Hx Substance Use: No Preferred Language: Romansh Communication Ability: Effective Air Hole Driller Required: No Beliefs That Will Affect Care: None marital status: Current Living Situation: Spouse Feels Safe at Home: Yes Safety Concerns: Feels Safe At This Time Assistive Devices: Glasses Results & Data Vital Signs (Past 12 Hours) Vital Signs Temp Pulse Resp BP Pulse Ox 02/03/23 18:04 36.3 C L 136 H 16 127/80 95
[2023-02-04] MEDS: allopurinoL 300 MG TAB PO SCH (12:54)
[2023-02-04 13:09] LABS: Echinocytes 1+; Polychromasia 1+
[2023-02-04 13:20] LABS: ALC (manual) 4.21 K/uL (1.2-3.4); Basophils # (manual) 0.18 K/uL (0-0.2); Basophils % (manual) 1 %; Lymphocytes # (manual) 4.21 K/uL (1.2-3.4); Lymphocytes % (manual) 24 %; Metamyelocytes # (manual) 0.35 K/uL (0-0); Metamyelocytes % (manual) 2 %; Monocytes % (manual) 4 %; Myelocytes # (manual) 0.53 K/uL (0-0); Myelocytes % (manual) 3 %; Neutrophils % (manual) 45 %; Other Cell Type % 21 %; Other Cells # (manual) 3.69 K/uL (0-0)
--- NOTE | 2023-02-04 15:17 | Electrocardiogram Report ---
Test Reason : Blood Pressure : / mmHG Vent. Rate : 140 BPM Atrial Rate : 140 BPM P-R Int : 156 ms QRS Dur : 074 ms QT Int : 242 ms P-R-T Axes : 059 -02 058 degrees QTc Int : 369 ms Sinus tachycardia Nonspecific T wave abnormality Abnormal ECG When compared with ECG of 27-DEC-2022 10:22, Vent. rate has increased BY 64 BPM Nonspecific T wave abnormality now evident in Inferior leads Nonspecific T wave abnormality now evident in Lateral leads Confirmed by Naif Gentile ([id number]) on 02/04/2023 3:16:56 PM Referred By: Dagmar Frost Confirmed By:Naif Gentile
[2023-02-04 15:25] LABS: Ferritin 565.6 ng/ml (8-388)
--- NOTE | 2023-02-04 16:41 | History & Physical Bridge Note ---
Date of Service February 04, 2023 History & Physical Bridge Note I have examined the patient, reviewed the History & Physical and in the interval since the performance of the History & Physical I have noted the following changes of clinical significance: Pt feels significant abdominal fullness. No nausea but appetite low due to abdominal distension from splenomegaly. Has a dry cough, feels very dry in the mouth. No BM today. I discussed her care at length with Oncology, Dr. Frost. FOrtunately, uric acid level is down, hgb has trended downward which may be somewhat dilutional. LDH about the same but TBili normal so not likely hemolyzing. Check haptoglobin just in case Will type and screen with next blood draw in case of need for transfusion but Dr. Frost cautions against transfusion unless <7.0 as her blood is already with leukostasis and at risk for "sludge" like effect. Vitals reviewed Tele with NSR, small runs PAT RRR no mgr CTAB no wcr Abd +BS, grossly enlarged spleen causing firm mass of entire abdomen Ext no edema 67 yo female here with TLS, recurrence of diffuse B cell lymphoma with likely bone marrow involvement Received 1 dose Rasburicase and improved. Watch hgb and transfuse if hgb<=7.0. Of note, needs irradiated products and blood would need to come from central blood [facility] and wouldn't be here until tomorrow Change labs to q12h for CBC,CMP,uric acid, phos. Ensure uric acid drawn on ice so not falsely low Check haptoglobin continue empiric cefepime given low grade temp on arrival and leukocytosis although this is most likely all due to her lymphoma with leukemia type picture (lymphoma cells seen on blood smear) follow BCxs Is accepted by. Dr. Gage at [facility] but no bed available still at this time. Paperwork for transfer is completed and on chart. Restart home allopurinol Could consider high dose steroids to help with spleen enlargement but pt reports they did not help her feel better in the past
[2023-02-04] MEDS ORDERED: METOPROLOL TARTRATE 1 MG/ML VIAL IV STA (17:36)
[2023-02-04 17:52] LABS: Albumin Globulin Ratio 2.4 (0.9-2); Albumin Level 3.3 gm/dl (3.4-5.0); BUN Creatinine Ratio 21.2 (10-20); Bilirubin,Total 0.8 mg/dl (0.2-1.0); Calcium 7.5 mg/dl (8.6-10.3); Creatinine Clr Calc Pharmacy 74.4 ml/min; Est GFR (African American) 105.9 ml/min; Est GFR (Non-African American) 91.4 ml/min; Globulin 1.4 gm/dl (2.5-4.0); Phosphorus 3.2 mg/dl (2.5-4.9); Potassium 4.6 mmol/L (3.5-5.1); Total Protein 4.7 gm/dl (6.0-8.3); Uric Acid 4.2 mg/dl (2.6-7.2)
[2023-02-04 18:28] LABS: Echinocytes 1+; Polychromasia 1+
[2023-02-04 18:29] LABS: Hematocrit (blood only) 27.7 % (37.0-47.0); Hemoglobin 8.8 g/dl (12.0-16.0); Mean Corpuscular Hemoglobin 28.1 pg (25.0-34.0); Mean Corpuscular Hgb Conc 31.8 g/dL (32.0-36.0); Mean Corpuscular Volume 88.5 fL (80.0-100.0); Mean Platelet Volume 11.7 fL (9.4-12.4); Nucleated RBC # (auto) 0.12 K/uL (0-0.12); Nucleated RBC % (auto) 0.6 %; Platelet Count 73 K/uL (130-400); RDW Coefficient of Variation 18.7 % (11.5-14.5); RDW Standard Deviation 58.1 fL (36.4-46.3); Red Blood Count 3.13 M/uL (4.20-5.40); White Blood Count 19.55 K/ul (4.8-10.8)
[2023-02-04] MEDS ORDERED: METOPROLOL TARTRATE 1 MG/ML VIAL IV PRN (19:09)
[2023-02-04 20:28] LABS: ALC (manual) 4.89 K/uL (1.2-3.4); ANC (manual) 6.45 K/uL (1.4-6.5); Lymphocytes # (manual) 4.89 K/uL (1.2-3.4); Lymphocytes % (manual) 25 %; Metamyelocytes % (manual) 1 %; Monocytes # (manual) 0.98 K/uL (0.11-0.59); Monocytes % (manual) 5 %; Myelocytes # (manual) 0.98 K/uL (0-0); Myelocytes % (manual) 5 %; Neutrophils # (manual) 6.45 K/uL (1.40-6.50); Neutrophils % (manual) 33 %; Other Cell Type % 31 %; Other Cells # (manual) 6.06 K/uL (0-0)
--- NOTE | 2023-02-04 23:57 | Billing Data ---
Date of Service February 04, 2023 Coding Level of Care Code 87924 INT INP/OBS CARE
[2023-02-05] MEDS: CEFEPIME 2,000 MG in SYRINGE 0 ML IV SCH ×3 (04:35→19:42)
[2023-02-05 07:24] LABS: Albumin Globulin Ratio 2.2 (0.9-2); Albumin Level 3.1 gm/dl (3.4-5.0); BUN Creatinine Ratio 18.1 (10-20); Bilirubin,Total 0.7 mg/dl (0.2-1.0); Calcium 7.6 mg/dl (8.6-10.3); Creatinine Clr Calc Pharmacy 68.2 ml/min; Est GFR (African American) 100.4 ml/min; Est GFR (Non-African American) 86.7 ml/min; Globulin 1.4 gm/dl (2.5-4.0); Phosphorus 3.2 mg/dl (2.5-4.9); Potassium 4.1 mmol/L (3.5-5.1); Total Protein 4.5 gm/dl (6.0-8.3); Uric Acid 3.6 mg/dl (2.6-7.2)
[2023-02-05 08:19] LABS: Hematocrit (blood only) 27.2 % (37.0-47.0); Hemoglobin 8.5 g/dl (12.0-16.0); Mean Corpuscular Hemoglobin 27.9 pg (25.0-34.0); Mean Corpuscular Hgb Conc 31.3 g/dL (32.0-36.0); Mean Corpuscular Volume 89.2 fL (80.0-100.0); Mean Platelet Volume 10.1 fL (9.4-12.4); Nucleated RBC # (auto) 0.13 K/uL (0-0.12); Nucleated RBC % (auto) 0.7 %; Platelet Count 62 K/uL (130-400); RDW Coefficient of Variation 19.1 % (11.5-14.5); RDW Standard Deviation 60.6 fL (36.4-46.3); Red Blood Count 3.05 M/uL (4.20-5.40); White Blood Count 19.65 K/ul (4.8-10.8)
[2023-02-05 08:37] LABS: Echinocytes 1+; Ovalocytes 1+; Polychromasia 1+
[2023-02-05] MEDS: allopurinoL 300 MG TAB PO SCH (08:37)
[2023-02-05 08:52] LABS: ALC (manual) 4.32 K/uL (1.2-3.4); Lymphocytes # (manual) 4.32 K/uL (1.2-3.4); Lymphocytes % (manual) 22 %; Monocytes # (manual) 0.39 K/uL (0.11-0.59); Monocytes % (manual) 2 %; Myelocytes # (manual) 0.59 K/uL (0-0); Myelocytes % (manual) 3 %; Neutrophils % (manual) 28 %; Other Cell Type % 45 %; Other Cells # (manual) 8.84 K/uL (0-0)
--- NOTE | 2023-02-05 20:46 | Hospitalist Progress Note ---
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 Found on outpatient labs to have evidence of tumor lysis syndrome. Peripheral smear the blood also reveals numerous circulating malignant cells from her lymphoma indicating bone marrow involvement as well as an absolute lymphocytosis with leukocytosis, worsening anemia and thrombocytopenia. Uric acid was elevated significantly at 17, Phosphorus normal, renal function normal, and with a significant anion gap metabolic acidosis There is no evidence of hemolysis at this time with normal total bilirubin and no schistocytes. LDH elevated secondary to lymphoma Spleen is massively enlarged at [address] and with diffuse lymphadenopathy seen She is accepted in transfer at [facility] by her oncologist to begin urgent inpatient chemotherapy, however is still awaiting a bed. She was given Rasburicase x1 dose on admission and is continued on her home allopurinol as well as IV fluids Appreciate oncology recommendations -Continue IV fluids -Continue serial labs although today will decrease lab frequency to once daily as she seems to have stabilized -Follow CBC, uric acid to be drawn on ice, CMP, phosphorus in the morning (2) Anemia: Plan: Hemoglobin decreased from admission from 11 down to 8 and remained stable today- some of which is likely hemodilutional as she was quite dry on admission No evidence of hemolysis as noted above. No evidence of bleeding from anywhere. This is secondary to bone marrow involvement of her lymphoma Typed and crossed for 2 units but not given Follow CBC in the morning and only transfuse if hemoglobin less than 7.0 as she is at risk for thrombosis given leukostasis as per my discussion with oncology (3) Diffuse large B-cell lymphoma: Plan: She achieved partial remission after CHOP therapy and was being evaluated for CAR-T therapy but now with relapse As noted above, needs urgent inpatient chemotherapy to begin (4) Splenomegaly: Plan: Massive splenomegaly with spleen measuring [address] Causes abdominal fullness and pressure Monitor clinically (5) Thrombocytopenia: Plan: Secondary to bone marrow involvement and splenomegaly with lymphoma Platelets lower than baseline in the 60s but stable from yesterday No evidence of bleeding Follow CBC in the morning Avoid antiplatelets and anticoagulation at this point (6) PAT (paroxysmal atrial tachycardia): Plan: Having some short runs of PAT and then had approximately 40 minutes of PAT with rates in the 130s on the evening of 02/04 which resolved with Lopressor 2.5 Mg IV x1 Continue IV Lopressor as needed Keep electrolytes replete Monitor on telemetry (7) Metabolic acidosis: Plan: Serum bicarbonate lower today at 12 with an anion gap of 18 Likely secondary to lactic acidosis from tumor lysis syndrome She is somewhat tachypneic, likely trying to compensate from a respiratory standpoint Treating tumor lysis syndrome as above Follow BMP, check lactate in the morning Plan DVT prophylaxis-contraindicated due to thrombocytopenia Disposition-accepted in transfer to [facility] but awaiting bed-none available today. Remain in PCU until time of transfer Admission and Anticipated Discharge Date Admission Date: February 04, 2023 Subjective Still feeling full in her abdomen with pressure from splenomegaly, but no pain. Cannot eat much because of abdominal fullness. Moved bowels today. No nausea. Tele with PAT with rates 130s yesterday x 45 min-was given IV lopressor with improvement. Today mostly ST low 100s Physical Exam Constitutional: WD/WN, vitals as above Neck: trachea midline, no thyromegaly Respiratory: normal respiratory effort, lungs clear to auscultation Cardiovascular: Rate/Rhythm: regular rhythm and + tachycardic Heart Sounds: no murmur Extremities: no edema Chest (Breasts): Chest: normal inspection of chest Gastrointestinal (Abdomen): Inspection/Auscultation: normal bowel sounds; + abdomen abnormal to inspection (protuberant) Percussion/Palpation: + splenomegaly (massive) Musculoskeletal: Extremities: extremities normal to inspection; no cyanosis and no clubbing Skin: no rashes, warm and dry Neurologic: moves all extremities and awake; no focal motor deficits Psychiatric: A+Ox3, euthymic affect Lymphatic: no lymphedema Results & Data Results & Data Vital Signs (Past 12 Hours) Vital Signs Temp Pulse Pulse Resp BP Pulse Ox O2 Del Method 02/05/23 19:46 36.8 C 108 H 18 132/74 96 Room Air 02/05/23 15:48 36.7 C 103 H 18 119/70 97 Room Air 02/05/23 15:39 96 H 02/05/23 11:01 36.8 C 105 H 18 113/71 97 Room Air Laboratory Results CBC, CMP, uric acid, folate, B12, iron studies, phosphorus, blood and urine cxs all reviewed PG Care Time/CCT Total # of Minutes Spent Total Time Spent with Patient: Total time spent is greater than 50% in coordination of care (as documented) at patient's floor/unit and/or counseling patient: Coding Level of Care Code 61435 SUB INP/OBS CARE 3/50MIN Diagnoses Tumor lysis syndrome E88.3 Anemia D64.9 Diffuse large B-cell lymphoma C83.30 Splenomegaly R16.1 Thrombocytopenia D69.6 PAT (paroxysmal atrial tachycardia) I47.1 Metabolic acidosis E87.20
[2023-02-05] MEDS: SODIUM CHLORIDE 0.9% 1000ML 1,000 ML IV SCH (20:56)
[2023-02-06] MEDS: CEFEPIME 2,000 MG in SYRINGE 0 ML IV SCH ×2 (04:52→11:49)
[2023-02-06 06:21] LABS: Hematocrit (blood only) 31.6 % (37.0-47.0); Hemoglobin 9.6 g/dl (12.0-16.0); Mean Corpuscular Hemoglobin 27.5 pg (25.0-34.0); Mean Corpuscular Hgb Conc 30.4 g/dL (32.0-36.0); Mean Corpuscular Volume 90.5 fL (80.0-100.0); Mean Platelet Volume 10.5 fL (9.4-12.4); Nucleated RBC # (auto) 0.23 K/uL (0-0.12); Nucleated RBC % (auto) 0.6 %; Platelet Count 68 K/uL (130-400); RDW Coefficient of Variation 19.9 % (11.5-14.5); RDW Standard Deviation 61.2 fL (36.4-46.3); Red Blood Count 3.49 M/uL (4.20-5.40); White Blood Count 36.31 K/ul (4.8-10.8)
[2023-02-06] MEDS: SODIUM CHLORIDE 0.9% 1000ML 1,000 ML IV SCH (06:30)
[2023-02-06 06:44] LABS: ALC (manual) 4.36 K/uL (1.2-3.4); ANC (manual) 14.52 K/uL (1.4-6.5); Acanthocytes 2+; Anisocytosis Present; Echinocytes 1+; Lymphocytes # (manual) 4.36 K/uL (1.2-3.4); Lymphocytes % (manual) 12 %; Metamyelocytes # (manual) 0.36 K/uL (0-0); Metamyelocytes % (manual) 1 %; Monocytes # (manual) 1.82 K/uL (0.11-0.59); Monocytes % (manual) 5 %; Myelocytes # (manual) 0.36 K/uL (0-0); Myelocytes % (manual) 1 %; Neutrophils # (manual) 14.52 K/uL (1.40-6.50); Neutrophils % (manual) 40 %; Other Cell Type % 41 %; Other Cells # (manual) 14.89 K/uL (0-0); Ovalocytes 1+; Polychromasia 1+; Promyelocytes # (manual) 0.36 K/uL (0-0); Promyelocytes % (manual) 1 %
[2023-02-06 06:48] LABS: Albumin Globulin Ratio 2.2 (0.9-2); Albumin Level 3.5 gm/dl (3.4-5.0); BUN Creatinine Ratio 19.5 (10-20); Bilirubin,Total 0.7 mg/dl (0.2-1.0); Creatinine Clr Calc Pharmacy 63.3 ml/min; Est GFR (African American) 92.6 ml/min; Est GFR (Non-African American) 79.9 ml/min; Globulin 1.6 gm/dl (2.5-4.0); Phosphorus 3.7 mg/dl (2.5-4.9); Potassium 4.8 mmol/L (3.5-5.1); Total Protein 5.1 gm/dl (6.0-8.3); Uric Acid 3.5 mg/dl (2.6-7.2)
[2023-02-06] MEDS ORDERED: dexAMETHasone 40 MG in SYRINGE 0 ML IV SCH (07:45)
[2023-02-06] MEDS ORDERED: dexAMETHasone 40 MG in DEXTROSE 5% 25 ML IV SCH (08:00)
[2023-02-06] MEDS: allopurinoL 300 MG TAB PO SCH (08:17)
[2023-02-06 08:20] LABS: Base Excess ABG -21.6 mEq/L (-9-1.8); HCO3 ABG 5 mmol/L (19-24); Oxygen Saturation ABG 97.8 % (90-95); PCO2 ABG 15 mmHg (35-46); PO2 ABG 97 mmHg (80-95)
[2023-02-06 08:25] LABS: pH ABG 7.15 (7.35-7.45)
[2023-02-06] MEDS ORDERED: STAT IV STA (08:32)
[2023-02-06] MEDS ORDERED: SODIUM BICARBONATE 8.4% 150 MEQ in DEXTROSE 5% 1,000 ML IV SCH (08:45)
[2023-02-06 08:56] LABS: Allen Test Pos (Pos)
--- NOTE | 2023-02-06 09:17 | Hospitalist Progress Note ---
Date of Service February 06, 2023 Assessment & Plan (1) Lymphoma: Plan: Reviewed with hospitalist team. Optimal path will still be to get her to [facility] as quickly as possible but they remain unable to accommodate the transfer because of lack of beds. Tumor lysis seems adequately controlled with uric acid levels in good range, elevated LDH and leukocytosis unfortunately indicate more aggressive lymphoma activity with leukocytosis a combination of circulating lymphoma cells and the expected inflammatory response. We will start steroids today as per Dr. Frost's recommendation of dexamethasone 40 mg, would suggest they be given IV to assure good absorption and plan to continue for at least 4 days. If a bed has not become available at [facility] in the interim, we may need to consider a dose of cyclophosphamide tomorrow. Overall prognosis remains very challenging Admission and Anticipated Discharge Date Admission Date: February 04, 2023 Subjective Uric acid is well controlled but LDH is rising and clinical situation is deteriorating with suggestions of evolving acidosis Results & Data Results & Data Vital Signs (Past 12 Hours) Vital Signs Temp Pulse Pulse Resp BP Pulse Ox O2 Del Method 02/06/23 08:09 36.8 C 126 H 18 125/77 99 Room Air 02/06/23 02:49 36.8 C 95 H 18 123/64 96 Room Air 02/05/23 23:16 101 H 02/05/23 23:07 36.8 C 109 H 18 113/53 L 95 Room Air PG Care Time/CCT Total # of Minutes Spent Total Time Spent with Patient: Total time spent is greater than 50% in coordination of care (as documented) at patient's floor/unit and/or counseling patient: Coding Level of Care Code None Diagnoses Lymphoma C85.90
[2023-02-06] MEDS ORDERED: PLASMA-LYTE A 500 ML IV ONE (10:54)
[2023-02-06] MEDS ORDERED: PLASMA-LYTE A 1,000 ML IV SCH (11:00)
--- NOTE | 2023-02-06 12:48 | Discharge Summary ---
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 Advised to present to ED by her oncologist due to abnormal labs. 4 days ago noticed her spleen enlarging and had mild abdominal pain. She has also been experiencing fatigue and generalized weakness and some shortness of breath on exertion. This prompted her to contact her oncologist who obtained labs which were abnormal. Denies fever, headache, chest pain, constipation, diarrhea, dysuria, nausea, vomiting. Patient initially seen by Dr. Frost for her B-cell lymphoma and now is primarily being seen by [facility]. They recommended she needs urgent inpatient chemotherapy and will be transferred to [facility] awaiting bed. 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 Found on outpatient labs to have evidence of tumor lysis syndrome. Peripheral smear the blood also reveals numerous circulating malignant cells from her lymphoma indicating bone marrow involvement as well as an absolute lymphocytosis with leukocytosis, worsening anemia and thrombocytopenia. Uric acid was elevated significantly at 17, Phosphorus normal, renal function normal, and with a significant anion gap metabolic acidosis which continued to worsen throughout her stay There is no evidence of hemolysis at this time with normal total bilirubin and no schistocytes. LDH elevated secondary to lymphoma and up to 2000 on day of discharge Spleen is massively enlarged at [address] and with diffuse lymphadenopathy seen She is accepted in transfer at [facility] by her oncologist to begin urgent inpatient chemotherapy She was given a dose of Decadron 40mg IV on 02/06/23 She was given Rasburicase x1 dose on admission and is continued on her home allopurinol as well as IV fluids ABG with pH 7.15/15/97 on room air Serum HCO3 only 8 with AG of 20 on day of discharge With some tachypnea as compensation for acidosis With worsening leukocytosis with WBC up to 36 with 41% lymphoma cells on peripheral smear on day of discharge (prior to receiving Decadron) Appreciate oncology recommendations-started Decadron 40mg IV daily-first dose on 02/06 -Continue IV fluids but change to HCO3 gtt plus Plasmalyte on 02/06 due to worsening metabolic acidosis -Follow CBC, uric acid to be drawn on ice, CMP, phosphorus bid -follow urine output -plan to start inpatient chemo urgently -continues on Cefepime IV empirically but no fevers, no signs of infection, and blood cultures remain NGTD > 48 hrs. Ur cx negative (2) Anemia: Hemoglobin decreased from admission from 11 down to 8 and remained stable at 9 on day of discharge-some of which is likely hemodilutional as she was quite dry on admission No evidence of hemolysis as noted above. No evidence of bleeding from anywhere. This is secondary to bone marrow involvement of her lymphoma Typed and crossed for 2 units but not given Follow CBC and only transfuse if hemoglobin less than 7.0 as she is at risk for thrombosis given leukostasis as per my discussion with oncology (3) Diffuse large B-cell lymphoma: She achieved partial remission after CHOP therapy and was being evaluated for CAR-T therapy but now with relapse As noted above, needs urgent inpatient chemotherapy to begin (4) Splenomegaly: Massive splenomegaly with spleen measuring [address] Causes abdominal fullness and pressure Monitor clinically (5) Thrombocytopenia: Secondary to bone marrow involvement and splenomegaly with lymphoma Platelets lower than baseline in the 60s but stable from yesterday No evidence of bleeding Follow CBC Avoid antiplatelets and anticoagulation at this point (6) PAT (paroxysmal atrial tachycardia): Having some short runs of PAT and then had approximately 40 minutes of PAT with rates in the 130s on the evening of 02/04 which resolved with Lopressor 2.5 Mg IV x1 Continue IV Lopressor as needed Keep electrolytes replete Monitor on telemetry (7) Metabolic acidosis: Serum bicarbonate continues to worsen each day and now down to 8 with an anion gap of 20 Likely secondary to lactic acidosis from tumor lysis syndrome, elevated LDH? Lactate here is normal She is somewhat tachypneic, likely trying to compensate from a respiratory standpoint ABG as gus at 7.15/ Treating tumor lysis syndrome as above Follow BMP, started HCO3 gtt, Plasmalyte to alkalinize urine Plan DVT prophylaxis-contraindicated due to thrombocytopenia [facility] Discharge Exam Constitutional WD/WN, vitals as above Neck trachea midline, no thyromegaly Respiratory + tachypneic Auscultation: lungs clear to auscultation bilaterally Cardiovascular Rate/Rhythm: regular rhythm and + tachycardic Heart Sounds: no murmur Extremities: no edema Chest (Breasts) Chest: normal inspection of chest Gastrointestinal (Abdomen) Inspection/Auscultation: normal bowel sounds; + abdomen abnormal to inspection (protuberant) Percussion/Palpation: + splenomegaly (massive) Musculoskeletal Extremities: extremities normal to inspection; no cyanosis and no clubbing Skin no rashes, warm and dry Neurologic moves all extremities and awake; no focal motor deficits Psychiatric A+Ox3, euthymic affect Lymphatic no lymphedema Updated Medication List Medication Instructions Recorded Confirmed Type No Known Home Medications 02/03/23 02/03/23 History Hospital Stay Data Consultations 02/04/23 00:09 ED Decision to Admit Stat 02/04/23 01:02 Consult Oncology Routine Pending Results Patient Have Any Pending Studies at Discharge: Yes (Blood and urine cultures, haptoglobin) Discharge Instructions Given to Patient (Per Discharging Provider) Transferred to [facility] Total Time Total Time Spent Total Time Spent (In Minutes): 60 min Coding Level of Care Code 65238 INP/OBS DISCH >30 MIN Diagnoses Tumor lysis syndrome E88.3 Anemia D64.9 Diffuse large B-cell lymphoma C83.30 Splenomegaly R16.1 Thrombocytopenia D69.6 PAT (paroxysmal atrial tachycardia) I47.1 Metabolic acidosis E87.20
== END 2023-02-06 15:16 | disposition short-term general hospital (02) | DRG 683 ==
LOC: ED 17:58 → SUATTDRO 02-04 01:02 → 2E 02-04 01:02